=== PATIENT | female | born 1945 | race Caucasian/White ===

== ENCOUNTER 2018-12-31 19:26 | Emergency (ER) | payer OTHER, MEDICARE ==
--- NOTE | 2018-12-31 20:12 | ER ---
Nurse's Notes [facility] Name: Daya Nelson Age: 73 yrs Sex: Female : 1945 Arrival Date: 12/31/2018 Time: 19:32 Bed 18 Private MD: Sarbjit Juan Diagnosis: Cutaneous abscess of right lower limb Presentation: 12/31 19:33 Presenting complaint: Patient states: Something bit my on my right leg. I think it may ed1 have been a spider but I didn't see it. Transition of care: patient was not received from another setting of care. Onset of symptoms was December 28, 2018. Risk Assessment: Do you want to hurt yourself or someone else? Patient reports no desire to harm self or others. Initial Sepsis Screen: Does the patient meet any 2 criteria? No. Patient's initial sepsis screen is negative. Does the patient have a suspected source of infection? No. Patient's initial sepsis screen is negative. Care prior to arrival: None. 19:33 Method Of Arrival: Ambulatory ed1 19:33 Acuity: FORTINO 3 ed1 Triage Assessment: 19:36 Bite description: bite sustained to right leg by an unknown animal, animal information: ed1 vaccination(s) is not applicable. General: Appears in no apparent distress. Behavior is calm, cooperative. Pain: Complains of pain in right leg Pain currently is 3 out of 10 on a pain scale. at worst was 5 out of 10 on a pain scale. Historical: - Allergies: 19:36 No Known Allergies; ed1 - Home Meds: 19:36 losartan 100 mg oral tab 1 tab once daily [Active]; aspirin 81 mg Oral chew 1 tab once ed1 daily [Active]; - PMHx: 19:36 Hypertension; Chronic Bronchitis; Irregular heart rate; ed1 - PSHx: 19:36 Hysterectomy; Appendectomy; ed1 - Immunization history:: Last tetanus immunization: > 10 years ago Flu vaccine is up to date. - Social history:: Smoking status: Patient/guardian denies using tobacco. - Ebola Screening: : Patient negative for fever greater than or equal to 101.5 degrees Fahrenheit, and additional compatible Ebola Virus Disease symptoms Patient denies exposure to infectious person Patient denies travel to an Ebola-affected area in the 21 days before illness onset No symptoms or risks identified at this time. Screenin:59 Abuse screen: Denies threats or abuse. Nutritional screening: No deficits noted. ea Tuberculosis screening: No symptoms or risk factors identified. Fall Risk None identified. Assessment: 19:55 General: Appears uncomfortable, Behavior is calm, cooperative, appropriate for age. ea Pain: Complains of pain in lateral aspect of right calf. Neuro: Level of Consciousness is awake, alert, obeys commands, Oriented to person, place, time. Cardiovascular: Patient's skin is warm and dry. Respiratory: Airway is patent Respiratory effort is even, unlabored, Respiratory pattern is regular, symmetrical. Derm: Skin red raised area to right lower extremity, purulent drainage noted Skin is pink, warm \T\ dry. 20:29 Reassessment: Patient and/or family updated on plan of care and expected duration. Pain ea level reassessed. Patient is alert, oriented x 3, equal unlabored respirations, skin warm/dry/pink. Discharge instruction given to patient, verbalized the understanding of instruction. Pt left ED ambulatory with family, pt tolerating well. Vital Signs: 19:36 BP 148 / 69; Pulse 98; Resp 16; Temp 97.7; Pulse Ox 96% on R/A; Weight 89.81 kg; Height ed1 5 ft. 7 in. (170.18 cm); Pain 3/10; 20:00 BP 136 / 70; Pulse 80; Resp 18; Pulse Ox 99% ; ea 19:36 Body Mass Index 31.01 (89.81 kg, 170.18 cm) ed1 ED Course: 19:32 Patient arrived in ED. es 19:32 Sarbjit Juan MD is Private Physician. es 19:34 Triage completed. ed1 19:36 Arm band placed on right wrist. ed1 19:46 Genie Santos [facility]-C [facility]. kb 19:46 Slade Schmitt MD is Attending Physician. kb 19:49 Марина Mcdaniels RN is Primary Nurse. ea 19:59 Patient has correct armband on for positive identification. Bed in low position. Call ea light in reach. Side rails up X2. 20:12 Sarbjit Juan MD is Referral Physician. kb 20:29 No provider procedures requiring assistance completed. Patient did not have IV access ea during this emergency room visit. Administered Medications: 20:13 Drug: Bactrim (160 mg-800 mg (DS) 1 tablet Route: PO; ea 20:31 Follow up: Response: No adverse reaction ea Outcome: 20:12 Discharge ordered by . paula 20:30 Discharged to home ambulatory, with family. ea 20:30 Condition: good 20:30 Discharge instructions given to patient, Instructed on discharge instructions, follow up and referral plans. medication usage, Demonstrated understanding of instructions, follow-up care, medications, Prescriptions given X 1. 20:30 Patient left the ED. ea Addendum: 01/04/2019 10:16 Addendum: Culture Results: Positive wound culture. No further action required. Bacteria s s sensitive to prescribed antibiotic. Signatures: Genie Santos, DIRECTOR DENTAL SERVICES-C DIRECTOR DENTAL SERVICES-Ckb Judit Cheek [place], AIDEN WOLFE Cesilia Levin RN RN ed1 Марина Mcdaniels RN RN ea
--- NOTE | 2018-12-31 20:13 | EDPHYS ---
Physician Documentation [facility] Name: Daya Nelson Age: 73 yrs Sex: Female : 1945 Arrival Date: 12/31/2018 Time: 19:32 Bed 18 Private MD: Sarbjit Juan ED Physician Slade Schmitt HPI: 12/31 20:09 This 73 yrs old Female presents to ER via Ambulatory with complaints of kb Insect Bite. 20:09 The patient presents with an abscess of the lateral aspect of right calf. Description: kb draining, erythematous, swollen, warm. Onset: The symptoms/episode began/occurred 3 day(s) ago. Possible cause(s): bit/stung by something. Associated signs and symptoms: Pertinent positives: drainage, erythema, swelling, Pertinent negatives: foreign body sensation, fever, headache, nausea, shortness of breath, vomiting. Modifying factors: the symptoms are alleviated by nothing, the symptoms are aggravated by pressure, squeezing the lesion and expressing the contents. Severity of symptoms: At their worst the symptoms were mild, moderate, in the emergency department the symptoms are unchanged. The patient has not experienced similar symptoms in the past. The patient has not recently seen a physician. Pt reports she felt something sting/bite her 3 days ago and scratched the area afterwards. Started getting red and swollen. Opened it with a needle at home and has been putting antibiotic cream on it, but family told her she had to come get it looked at because it could be a brown recluse bite. Abscess open and draining. Was able to express a moderate amount of purulent fluid from abscess. Pt does not want it cut at this time. Educated to take antibiotics and apply warm compressed . Historical: - Allergies: 19:36 No Known Allergies; ed1 - Home Meds: 19:36 losartan 100 mg oral tab 1 tab once daily [Active]; aspirin 81 mg Oral chew 1 tab once ed1 daily [Active]; - PMHx: 19:36 Hypertension; Chronic Bronchitis; Irregular heart rate; ed1 - PSHx: 19:36 Hysterectomy; Appendectomy; ed1 - Immunization history:: Last tetanus immunization: > 10 years ago Flu vaccine is up to date. - Social history:: Smoking status: Patient/guardian denies using tobacco. - Ebola Screening: : Patient negative for fever greater than or equal to 101.5 degrees Fahrenheit, and additional compatible Ebola Virus Disease symptoms Patient denies exposure to infectious person Patient denies travel to an Ebola-affected area in the 21 days before illness onset No symptoms or risks identified at this time. ROS: 20:08 Constitutional: Negative for fever, chills, and weight loss, Cardiovascular: Negative kb for chest pain, palpitations, and edema, Respiratory: Negative for shortness of breath, cough, wheezing, and pleuritic chest pain, Abdomen/GI: Negative for abdominal pain, nausea, vomiting, diarrhea, and constipation, MS/Extremity: Negative for injury and deformity, Neuro: Negative for headache, weakness, numbness, tingling, and seizure. 20:08 Skin: Positive for abscess, of the lateral aspect of right calf. Exam: 20:08 Constitutional: This is a well developed, well nourished patient who is awake, alert, kb and in no acute distress. Head/Face: Normocephalic, atraumatic. Chest/axilla: Normal chest wall appearance and motion. Nontender with no deformity. No lesions are appreciated. Cardiovascular: Regular rate and rhythm with a normal S1 and S2. No gallops, murmurs, or rubs. Normal PMI, no JVD. No pulse deficits. Respiratory: Lungs have equal breath sounds bilaterally, clear to auscultation and percussion. No rales, rhonchi or wheezes noted. No increased work of breathing, no retractions or nasal flaring. Abdomen/GI: Soft, non-tender, with normal bowel sounds. No distension or tympany. No guarding or rebound. No evidence of tenderness throughout. MS/ Extremity: Pulses equal, no cyanosis. Neurovascular intact. Full, normal range of motion. Neuro: Awake and alert, GCS 15, oriented to person, place, time, and situation. Cranial nerves II-XII grossly intact. Motor strength 5/5 in all extremities. Sensory grossly intact. Cerebellar exam normal. Normal gait. 20:08 Skin: abscess, that is moderate sized, of the lateral aspect of right calf, with drainage, that is purulent, with induration, with surrounding cellulitis, that is mild. Vital Signs: 19:36 BP 148 / 69; Pulse 98; Resp 16; Temp 97.7; Pulse Ox 96% on R/A; Weight 89.81 kg; Height ed1 5 ft. 7 in. (170.18 cm); Pain 3/10; 20:00 BP 136 / 70; Pulse 80; Resp 18; Pulse Ox 99% ; ea 19:36 Body Mass Index 31.01 (89.81 kg, 170.18 cm) ed1 MDM: 19:46 Patient medically screened. kb 20:07 Data reviewed: vital signs, nurses notes. Data interpreted: Pulse oximetry: on room air kb is 96 %. Interpretation: normal. Counseling: I had a detailed discussion with the patient and/or guardian regarding: the historical points, exam findings, and any diagnostic results supporting the discharge/admit diagnosis, the need for outpatient follow up, a family practitioner, to return to the emergency department if symptoms worsen or persist or if there are any questions or concerns that arise at home. 12/31 20:05 Order name: Wound Culture kb 12/31 20:05 Order name: Wound Culture EDMS Administered Medications: 20:13 Drug: Bactrim (160 mg-800 mg (DS) 1 tablet Route: PO; ea 20:31 Follow up: Response: No adverse reaction ángel Disposition: 01/01 00:00 Co-signature as Attending Physician, Slade Schmitt MD. dalia Disposition: 12/31/18 20:12 Discharged to Home. Impression: Cutaneous abscess of right lower limb. - Condition is Stable. - Discharge Instructions: Skin Abscess, [id number]. - Prescriptions for Bactrim DS 800- 160 mg Oral Tablet - take 1 tablet by ORAL route every 12 hours for 7 days; 14 tablet. - Medication Reconciliation Form, Thank You Letter, Antibiotic Education, Prescription Opioid Use form. - Follow up: Emergency Department; When: As needed; Reason: Worsening of condition. Follow up: Sarbjit Juan MD; When: 2 - 3 days; Reason: Recheck today's complaints, Continuance of care, Re-evaluation by your physician. Signatures: Dispatcher [employer] EDMS Genie Santos FNP-C FNP-Ckb Riggs, Erika RN RN ed1 Марина Mcdaniels RN RN ea Starr, Gregory, MD MD gs Corrections: (The following items were deleted from the chart) 12/31 20:30 20:12 12/31/2018 20:12 Discharged to Home. Impression: Cutaneous abscess of right lower ea limb. Condition is Stable. Forms are Medication Reconciliation Form, Thank You Letter, Antibiotic Education, Prescription Opioid Use. Follow up: Emergency Department; When: As needed; Reason: Worsening of condition. Follow up: Sarbjit Juan; When: 2 - 3 days; Reason: Recheck today's complaints, Continuance of care, Re-evaluation by your physician. kb
[2018-12-31] MEDS ORDERED: SMZ./TMP. 800/160 MG TABLET ONE (20:26)
== END 2018-12-31 20:30 | disposition home or self-care (01) ==
LOC: ER 19:26
DX: L02.415 Cutaneous abscess of right lower limb (principal); Z79.82 Long term (current) use of aspirin; I10 Essential (primary) hypertension
CPT/HCPCS: 87070; 87077; 87186; 87205; 99283

== ENCOUNTER 2019-09-04 16:32 | Emergency (ER) | payer OTHER, MEDICARE ==
--- NOTE | 2019-09-04 18:06 | RAD REPORT ---
EXAM DESCRIPTION: RAD - Chest Pa And Lat (2 Views) - 09/04/2019 5:46 pm CLINICAL HISTORY: Cough;Congestion COMPARISON: No comparisons TECHNIQUE: Frontal and lateral views of the chest were obtained. FINDINGS: The lungs are clear peripheral mass or consolidation. No failure or volume overload. Inter stitial markings are prominent in each lung base. As a baseline study, fibrosis, edema and infiltrate can all have a similar pattern. Heart size is normal and central vasculature is within normal limi ts. No pleural effusion or pneumothorax seen. No acute bony finding noted. No aortic abnormality. IMPRESSION: No focal mass or consolidation. Baseline study showing increased interstitial opacification in each base. As a baseline study, inters titial pneumonia, fibrosis and interstitial edema can all have this appearance.
[2019-09-04 18:12] LABS: Basophils % 0.6 % (0-1.3); Hematocrit 44.3 % (36.0-45.0); Lymphocytes % 17.3 % (15.3-44.8); MPV 8.5 fL (7.6-11.3); RBC Red Blood Cell Count 4.78 M/uL (3.86-4.86)
[2019-09-04] MEDS ORDERED: IPRATROPIUM BROM 0.5MG/2.5ML ONE (18:14)
[2019-09-04] MEDS ORDERED: LEVALBUTEROL 1.25 MG/3 ML NEB ONE (18:14)
[2019-09-04 20:07] LABS: Potassium 3.7 mmol/L (3.5-5.1)
--- NOTE | 2019-09-04 20:21 | EDPHYS ---
Physician Documentation [facility] Name: Daya Nelson Age: 74 yrs Sex: Female : 1945 Arrival Date: 09/04/2019 Time: 16:36 Bed 17 Private MD: ED Physician Shay Perry HPI: 09/04 17:42 This 74 yrs old Female presents to ER via Ambulatory with complaints of kb Pneumonia- getting worse. 17:43 The patient or guardian reports cough, that is intermittent, described as moderate, kb with no sputum, difficulty breathing. Onset: The symptoms/episode began/occurred 2 week(s) ago. Severity of symptoms: At their worst the symptoms were moderate, in the emergency department the symptoms are unchanged. Modifying factors: The symptoms are alleviated by nothing, the symptoms are aggravated by nothing. Associated signs and symptoms: The patient has no apparent associated signs or symptoms. The patient has not experienced similar symptoms in the past. The patient has been recently seen at an urgent care. Pt reports cough, congestion, wheezing and shortness of breath that started 2 weeks ago. Went to and was diagnosed with bronchitis, given a z-pack. States she wasn't feeling better so she went back and was diagnosed with pneumonia, put on steroids. States she is still having the symptoms . Historical: - Allergies: 16:50 No Known Allergies; ca1 - PMHx: 16:50 chronic bronchitis; Hypertension; Irregular heart rate; ca1 - PSHx: 16:50 Hysterectomy; Appendectomy; ca1 - Immunization history:: Adult Immunizations up to date, Pneumococcal vaccine is not up to date, Flu vaccine is not up to date. - Coronavirus screen:: The patient has NOT traveled to [place], [place], or [place] in the past 14 days. The patient has NOT had contact with known/suspected case of Coronavirus?. - Social history:: Smoking status: Patient denies any tobacco usage or history of. - Ebola Screening: : Patient negative for fever greater than or equal to 101.5 degrees Fahrenheit, and additional compatible Ebola Virus Disease symptoms Patient denies exposure to infectious person Patient denies travel to an Ebola-affected area in the 21 days before illness onset No symptoms or risks identified at this time. ROS: 17:42 Constitutional: Negative for fever, chills, and weight loss, ENT: Negative for injury, kb pain, and discharge, Neck: Negative for injury, pain, and swelling, Cardiovascular: Negative for chest pain, palpitations, and edema, Abdomen/GI: Negative for abdominal pain, nausea, vomiting, diarrhea, and constipation, Back: Negative for injury and pain, MS/Extremity: Negative for injury and deformity, Skin: Negative for injury, rash, and discoloration, Neuro: Negative for headache, weakness, numbness, tingling, and seizure. 17:42 Respiratory: Positive for cough, shortness of breath, wheezing. Exam: 17:42 Constitutional: This is a well developed, well nourished patient who is awake, alert, kb and in no acute distress. Head/Face: Normocephalic, atraumatic. ENT: Nares patent. No nasal discharge, no septal abnormalities noted. Tympanic membranes are normal and external auditory canals are clear. Oropharynx with no redness, swelling, or masses, exudates, or evidence of obstruction, uvula midline. Mucous membranes moist. Neck: Trachea midline, no thyromegaly or masses palpated, and no cervical lymphadenopathy. Supple, full range of motion without nuchal rigidity, or vertebral point tenderness. No Meningismus. Chest/axilla: Normal chest wall appearance and motion. Nontender with no deformity. No lesions are appreciated. Cardiovascular: Regular rate and rhythm with a normal S1 and S2. No gallops, murmurs, or rubs. Normal PMI, no JVD. No pulse deficits. Abdomen/GI: Soft, non-tender, with normal bowel sounds. No distension or tympany. No guarding or rebound. No evidence of tenderness throughout. Back: No spinal tenderness. No costovertebral tenderness. Full range of motion. Skin: Warm, dry with normal turgor. Normal color with no rashes, no lesions, and no evidence of cellulitis. MS/ Extremity: Pulses equal, no cyanosis. Neurovascular intact. Full, normal range of motion. Neuro: Awake and alert, GCS 15, oriented to person, place, time, and situation. Cranial nerves II-XII grossly intact. Motor strength 5/5 in all extremities. Sensory grossly intact. Cerebellar exam normal. Normal gait. 17:42 Respiratory: the patient does not display signs of respiratory distress, Respirations: normal, Breath sounds: wheezing: expiratory that is moderate, is heard diffusely. Vital Signs: 16:50 BP 151 / 63; Pulse 81; Resp 23 S; Temp 97.4(O); Pulse Ox 96% on R/A; Weight 88.45 kg ca1 (R); Height 5 ft. 7 in. (170.18 cm) (R); 17:50 BP 161 / 69; Pulse 74; Resp 21; Pulse Ox 94% on R/A; rb1 19:15 BP 142 / 66; Pulse 78; Resp 18; Pulse Ox 95% on R/A; wh 20:00 BP 144 / 65; Pulse 76; Resp 18; Temp 97.2; Pulse Ox 95% ; wh 16:50 Body Mass Index 30.54 (88.45 kg, 170.18 cm) ca1 MDM: 16:52 Patient medically screened. kb 17:42 Data reviewed: vital signs, nurses notes. Data interpreted: Pulse oximetry: on room air kb is 96 %. Interpretation: normal. 20:19 Counseling: I had a detailed discussion with the patient and/or guardian regarding: the kb historical points, exam findings, and any diagnostic results supporting the discharge/admit diagnosis, lab results, radiology results, the need for outpatient follow up, a family practitioner, to return to the emergency department if symptoms worsen or persist or if there are any questions or concerns that arise at home. 20:20 ED course: Pt educated to follow up with watermaster seen previously in [place] for kb COPD management. 09/04 17:08 Order name: CBC with Diff; Complete Time: 18:27 kb 09/04 17:08 Order name: Basic Metabolic Panel; Complete Time: 20:04 kb 09/04 17:08 Order name: Blood Culture Adult (2) kb 09/04 17:08 Order name: Lactate; Complete Time: 20:17 kb 09/04 17:08 Order name: Procalcitonin; Complete Time: 19:26 kb 09/04 17:08 Order name: Chest Pa And Lat (2 Views) XRAY; Complete Time: 18:19 kb 09/04 17:08 Order name: IV Start; Complete Time: 18:02 kb Administered Medications: 18:15 Drug: Xopenex (3) 1.25 mg Route: Inhalation; rb1 18:15 Drug: AtroVENT Aerosol 0.5 mg Route: Inhalation; rb1 Disposition: 09/05 07:02 Co-signature as Attending Physician, Shay Perry MD. rn Disposition: 09/04/19 20:20 Discharged to Home. Impression: Chronic obstructive pulmonary disease with (acute) exacerbation. - Condition is Stable. - Discharge Instructions: Chronic Obstructive Pulmonary Disease Exacerbation. - Medication Reconciliation Form, Thank You Letter, Antibiotic Education, Prescription Opioid Use form. - Follow up: Emergency Department; When: As needed; Reason: Worsening of condition. Follow up: Private Physician; When: 2 - 3 days; Reason: Recheck today's complaints, Continuance of care, Re-evaluation by your physician. Signatures: Dispatcher [employer] EDMS Genie Santos, TUBE COREMAKER-C TUBE COREMAKER-Ckb Shay Perry MD MD rn Juanita Rudd, RN RN [facility] Ora Brady Cheryl, RN RN ca1 Corrections: (The following items were deleted from the chart) 09/04 20:38 20:20 09/04/2019 20:20 Discharged to Home. Impression: Chronic obstructive pulmonary wh disease with (acute) exacerbation. Condition is Stable. Forms are Medication Reconciliation Form, Thank You Letter, Antibiotic Education, Prescription Opioid Use. Follow up: Emergency Department; When: As needed; Reason: Worsening of condition. Follow up: Private Physician; When: 2 - 3 days; Reason: Recheck today's complaints, Continuance of care, Re-evaluation by your physician. kb
--- NOTE | 2019-09-04 20:21 | ER ---
Nurse's Notes [facility] Name: Daya Nelson Age: 74 yrs Sex: Female : 1945 Arrival Date: 09/04/2019 Time: 16:36 Bed 17 Private MD: Diagnosis: Chronic obstructive pulmonary disease with (acute) exacerbation Presentation: 09/04 16:43 Presenting complaint: Patient states: On the , I was diagnosed with Bronchitis ca1 Prescribed Z-pack, inhaler, and Perles. ON the , I was diagnosed with Pneumonia and was prescribed breathing treatments and steroids. But I feel like I am getting worse. I have to catch my breath now. Denies fever. Transition of care: patient was not received from another setting of care. Onset of symptoms was September 04, 2019. Risk Assessment: Do you want to hurt yourself or someone else? Patient reports no desire to harm self or others. Initial Sepsis Screen: Does the patient meet any 2 criteria? No. Patient's initial sepsis screen is negative. Does the patient have a suspected source of infection? No. Patient's initial sepsis screen is negative. 16:43 Method Of Arrival: Ambulatory ca1 16:43 Acuity: FORTINO 3 ca1 19:15 Care prior to arrival: None. Triage Assessment: 19:15 Pain: Denies pain. Historical: - Allergies: 16:50 No Known Allergies; ca1 - PMHx: 16:50 chronic bronchitis; Hypertension; Irregular heart rate; ca1 - PSHx: 16:50 Hysterectomy; Appendectomy; ca1 - Immunization history:: Adult Immunizations up to date, Pneumococcal vaccine is not up to date, Flu vaccine is not up to date. - Coronavirus screen:: The patient has NOT traveled to [place], [place], or [place] in the past 14 days. The patient has NOT had contact with known/suspected case of Coronavirus?. - Social history:: Smoking status: Patient denies any tobacco usage or history of. - Ebola Screening: : Patient negative for fever greater than or equal to 101.5 degrees Fahrenheit, and additional compatible Ebola Virus Disease symptoms Patient denies exposure to infectious person Patient denies travel to an Ebola-affected area in the 21 days before illness onset No symptoms or risks identified at this time. Screenin:52 Abuse screen: Denies threats or abuse. Nutritional screening: No deficits noted. rb1 Tuberculosis screening: No symptoms or risk factors identified. Fall Risk None identified. Assessment: 16:52 General: Appears in no apparent distress. comfortable, Behavior is calm, cooperative, rb1 Denies fever. Neuro: Level of Consciousness is awake, alert, obeys commands, Oriented to person, place, time, situation. Cardiovascular: Patient's skin is warm and dry. Respiratory: Reports shortness of breath cough that is productive, since x a couple weeks Airway is patent Respiratory effort is even, unlabored, Respiratory pattern is regular, symmetrical. GI: No signs and/or symptoms were reported involving the gastrointestinal system. : No signs and/or symptoms were reported regarding the genitourinary system. 17:50 Reassessment: Patient appears in no apparent distress at this time. No changes from [facility] previously documented assessment. Family is at the bedside. 19:15 Reassessment: Patient appears in no apparent distress at this time. Patient and/or family updated on plan of care and expected duration. Pain level reassessed. Patient is alert, oriented x 3, equal unlabored respirations, skin warm/dry/pink. 20:30 Reassessment: Patient appears in no apparent distress at this time. No changes from previously documented assessment. Patient and/or family updated on plan of care and expected duration. Pain level reassessed. Patient is alert, oriented x 3, equal unlabored respirations, skin warm/dry/pink. Vital Signs: 16:50 BP 151 / 63; Pulse 81; Resp 23 S; Temp 97.4(O); Pulse Ox 96% on R/A; Weight 88.45 kg ca1 (R); Height 5 ft. 7 in. (170.18 cm) (R); 17:50 BP 161 / 69; Pulse 74; Resp 21; Pulse Ox 94% on R/A; rb1 19:15 BP 142 / 66; Pulse 78; Resp 18; Pulse Ox 95% on R/A; wh 20:00 BP 144 / 65; Pulse 76; Resp 18; Temp 97.2; Pulse Ox 95% ; wh 16:50 Body Mass Index 30.54 (88.45 kg, 170.18 cm) ca1 ED Course: 16:36 Patient arrived in ED. as 16:49 Triage completed. ca1 16:50 [facility]C [facility] kb 16:50 Shay Perry MD is Attending Physician. kb 16:50 Arm band placed on right wrist. ca1 16:52 Patient has correct armband on for positive identification. Placed in gown. Bed in low rb1 position. Call light in reach. Side rails up X 1. Pulse ox on. NIBP on. 16:57 Juanita Rudd, RN is Primary Nurse. rb1 17:44 Chest Pa And Lat (2 Views) XRAY In Process Unspecified. EDMS 17:58 Initial lab(s) drawn, by me, sent to lab. First set of blood cultures drawn. Inserted em1 saline lock: 20 gauge in right wrist, using aseptic technique. Blood collected. 20:37 No provider procedures requiring assistance completed. IV discontinued, intact, bleeding controlled, No redness/swelling at site. Administered Medications: 18:15 Drug: Xopenex (3) 1.25 mg Route: Inhalation; rb1 18:15 Drug: AtroVENT Aerosol 0.5 mg Route: Inhalation; rb1 Outcome: 20:20 Discharge ordered by . kb 20:37 Discharged to home ambulatory, with family. wh 20:37 Condition: stable 20:37 Discharge instructions given to patient, family, Instructed on discharge instructions, follow up and referral plans. POC Demonstrated understanding of instructions, follow-up care, POC 20:38 Patient left the ED. Signatures: Dispatcher [employer] EDMS Genie Santos, TELESALES AGENT-C TELESALES AGENT-Eleanor Daniels Eric em1 Juanita Rudd, RN RN rb1 Ora Brady Nuria Oconnell RN RN ca1
[2019-09-04 22:17] VITALS: O2SAT 95
[2019-09-04 22:18] VITALS: BP 144/65; TEMP 97.2
== END 2019-09-04 20:38 | disposition home or self-care (01) ==
LOC: ER 16:32
DX: J44.1 Chronic obstructive pulmonary disease with (acute) exacerbation (principal)
CPT/HCPCS: 36415; 71046; 80048; 83605; 84145; 85025; 87040; 99284

== ENCOUNTER 2019-09-06 18:26 | Inpatient (IN) | payer OTHER, MEDICARE ==
[2019-09-06] MEDS: ENOXAPARIN 100 MG/ML SYR SQ SCH (00:28)
[2019-09-06] MEDS ORDERED: RSI MEDICATION KIT IV ONE (18:35)
[2019-09-06] MEDS ORDERED: IPRATROPIUM BROM 0.5MG/2.5ML ONE ×2 (18:37→20:27)
[2019-09-06] MEDS ORDERED: METHYLPREDNISOLONE 125 MG INJ ONE (18:37)
[2019-09-06] MEDS ORDERED: MAGNESIUM SULFATE 1 gm IVPB 1 GM/100 ML BAG IV ONE (18:37)
[2019-09-06] MEDS ORDERED: ALBUTEROL 2.5 MG/3 ML NEB SOL ONE ×2 (18:37→20:27)
[2019-09-06 18:52] LABS: Basophils % 0.6 % (0-1.3); Lymphocytes % 17.6 % (15.3-44.8); RBC Red Blood Cell Count 5.09 M/uL (3.86-4.86)
--- NOTE | 2019-09-06 18:55 | RAD REPORT ---
EXAM DESCRIPTION: RAD - Chest Single View - 09/06/2019 6:50 pm CLINICAL HISTORY: SOB Chest pain. COMPARISON: <Comparisons> FINDINGS: Portable technique limits examination quality. The lungs are mildly emphysematous clear. The heart is normal in size. No displaced fractures. IMPRESSION: Mild COPD.
--- NOTE | 2019-09-06 19:05 | EDPHYS ---
Physician Documentation [facility] Name: Daya Nelson Age: 74 yrs Sex: Female : 1945 Arrival Date: 09/06/2019 Time: 18:27 Bed 4 Private MD: Sarbjit Juan ED Physician Adrian oDnald HPI: 09/06 18:58 This 74 yrs old Female presents to ER via Wheelchair with complaints of tw4 Breathing Difficulty. 18:58 The patient has shortness of breath at rest. Onset: The symptoms/episode began/occurred tw4 today. Duration: The symptoms are continuous, and are steadily getting worse. The patient's shortness of breath has no apparent modifying factors. Associated signs and symptoms: The patient has no apparent associated signs or symptoms. Severity of symptoms: At their worst the symptoms were moderate in the emergency department the symptoms. The patient has not experienced similar symptoms in the past. 18:58 Unable to obtain HPI due to patient distress. tw4 Historical: - Allergies: 18:39 No Known Allergies; hb - Home Meds: 18:39 losartan 100 mg Oral tab 1 tab once daily [Active]; aspirin 81 mg Oral chew 1 tab once hb daily [Active]; - PMHx: 18:39 chronic bronchitis; Hypertension; Irregular heart rate; hb - PSHx: 18:39 Hysterectomy; Appendectomy; hb - Immunization history:: Adult Immunizations. - Coronavirus screen:: The patient has NOT traveled to [place], [place], or [place] in the past 14 days. - Social history:: Smoking status: . - Ebola Screening: : Patient denies travel to an Ebola-affected area in the 21 days before illness onset. ROS: 18:58 Constitutional: Negative for fever, chills, and weight loss, Eyes: Negative for injury, tw4 pain, redness, and discharge, Cardiovascular: Negative for chest pain, palpitations, and edema, Abdomen/GI: Negative for abdominal pain, nausea, vomiting, diarrhea, and constipation, Back: Negative for injury and pain, MS/Extremity: Negative for injury and deformity, Skin: Negative for injury, rash, and discoloration, Neuro: Negative for headache, weakness, numbness, tingling, and seizure. 18:58 Respiratory: Positive for shortness of breath, wheezing, expiratory, Negative for cough, dyspnea on exertion, hemoptysis, orthopnea, pleurisy. Exam: 18:58 Head/Face: Normocephalic, atraumatic. Eyes: Pupils equal round and reactive to light, tw4 extra-ocular motions intact. Lids and lashes normal. Conjunctiva and sclera are non-icteric and not injected. Cornea within normal limits. Periorbital areas with no swelling, redness, or edema. Chest/axilla: Normal chest wall appearance and motion. Nontender with no deformity. No lesions are appreciated. Cardiovascular: Regular rate and rhythm with a normal S1 and S2. No gallops, murmurs, or rubs. Normal PMI, no JVD. No pulse deficits. Abdomen/GI: Soft, non-tender, with normal bowel sounds. No distension or tympany. No guarding or rebound. No evidence of tenderness throughout. Back: No spinal tenderness. No costovertebral tenderness. Full range of motion. MS/ Extremity: Pulses equal, no cyanosis. Neurovascular intact. Full, normal range of motion. Neuro: Awake and alert, GCS 15, oriented to person, place, time, and situation. Cranial nerves II-XII grossly intact. Motor strength 5/5 in all extremities. Sensory grossly intact. Cerebellar exam normal. Normal gait. 18:58 Constitutional: The patient appears anxious, in obvious distress, moderately distressed. 18:58 Respiratory: moderate respiratory distress is noted, Respirations: labored breathing, that is moderate, accessory muscle usage, that is moderate, Breath sounds: wheezing: that is moderate, is heard diffusely. Vital Signs: 18:30 BP 154 / 124; Pulse 101; Resp 33; Temp 98.3; Pulse Ox 78% on R/A; hb 18:47 BP 155 / 106; Pulse 97; Resp 28; Pulse Ox 99% on 30% BiPAP; Pain 0/10; tw2 19:10 BP 106 / 88; Pulse 97; Resp 22; Pulse Ox 99% on 100% BiPAP; jb4 20:45 BP 134 / 79; Pulse 100; Resp 24; Pulse Ox 96% on 3 lpm NC; jb4 21:17 BP 132 / 86; Pulse 93; Resp 20; Temp 97.8(TE); Pulse Ox 97% on 3 lpm NC; jb4 18:47 15/7 rate 16 tw2 MDM: 18:28 Patient medically screened. tw4 09/07 00:29 Differential diagnosis: Anemia asthma, Bronchitis CHF exacerbation, pneumonia, tw4 Pneumothorax pulmonary edema, reactive airway disease. Antibiotic administration: Not indicated. Data reviewed: vital signs, EMS record. Data interpreted: Pulse oximetry: Interpretation: normal. Counseling: I had a detailed discussion with the patient and/or guardian regarding: the historical points, exam findings, and any diagnostic results supporting the discharge/admit diagnosis, lab results, radiology results. Physician consultation: Margie Dixon MD was contacted at 19:44, regarding admission, to the telemetry unit. patient's condition, and will see patient in inpatient room. ED course: Pt presented with impending respiratory failurre related to COPD. Pt placed on bipap and stated that she felt better. . 00:33 ED course: Pt ABG after 1 hour BiPAP and neb treatments. Will admit the patient to the tw4 floor and downgrade from the ICU. 09/06 18:36 Order name: Basic Metabolic Panel; Complete Time: 00:32 09/06 18:36 Order name: CBC with Diff; Complete Time: 00:32 09/06 18:36 Order name: LFT's; Complete Time: 00:32 09/06 18:36 Order name: Magnesium; Complete Time: 00:32 09/06 18:36 Order name: NT PRO-BNP; Complete Time: 00:32 09/06 18:36 Order name: Troponin (emerg Dept Use Only); Complete Time: 00:32 09/06 18:36 Order name: Blood Culture Adult (2) 09/06 18:37 Order name: Ckmb; Complete Time: 00:32 09/06 18:37 Order name: CPK; Complete Time: 00:32 09/06 18:37 Order name: Lipase; Complete Time: 00:32 09/06 18:37 Order name: Ptt, Activated; Complete Time: 00:32 09/06 18:45 Order name: Protime (+INR); Complete Time: 00:32 ED09/06 21:25 Order name: ABG Arterial Blood Gas; Complete Time: 00:32 EDMS 09/06 21:25 Order name: Troponin I; Complete Time: 00:32 EDMS 09/06 21:30 Order name: CBC with Automated Diff EDMS 09/06 21:30 Order name: CBC with Automated Diff EDMS 09/06 21:30 Order name: Comprehensive Metabolic Panel EDMS 09/06 21:30 Order name: Comprehensive Metabolic Panel EDMS 09/06 21:30 Order name: Lactate EDMS 09/06 21:30 Order name: Lactate EDMS 09/06 21:30 Order name: Magnesium EDMS 09/06 21:30 Order name: Magnesium EDMS 09/06 21:30 Order name: Phosphorus EDMS 09/06 21:30 Order name: Phosphorus EDMS 09/06 21:30 Order name: NT PRO-BNP EDMS 09/06 21:30 Order name: NT PRO-BNP EDWV 09/06 21:31 Order name: Troponin I EDWV 09/06 21:31 Order name: Troponin I EDWV 09/06 21:31 Order name: Troponin I EDWV 09/06 18:36 Order name: XRAY Chest (1 view); Complete Time: 00:32 09/06 18:36 Order name: EKG; Complete Time: 18:37 09/06 18:36 Order name: Cardiac monitoring; Complete Time: 18:47 09/06 18:36 Order name: EKG - Nurse/Tech; Complete Time: 19:10 09/06 18:36 Order name: IV Saline Lock; Complete Time: 19:10 09/06 18:36 Order name: Labs collected and sent; Complete Time: 18:47 09/06 18:36 Order name: O2 Per Protocol; Complete Time: 18:47 09/06 18:36 Order name: O2 Sat Monitoring; Complete Time: 18:46 09/06 18:36 Order name: BIPAP [facility] 09/06 21:30 Order name: CONS Physician Consult EDWV 09/06 21:30 Order name: Heart Healthy EDWV 09/06 21:31 Order name: Troponin I EDWV EC/01 18:58 Rate is 93 beats/min. Rhythm is regular, Normal Sinus Rhythm with Right bundle branch tw4 block. QRS [place] is Normal. [place] interval is normal. QRS interval is normal. QT interval is normal. No Q waves. T waves are Inverted in lead aVL. No ST changes noted. Clinical impression: NSR w/ Non-specific ST/T Changes. Interpreted by me. Reviewed by me. Administered Medications: 18:38 Drug: SOLU-Medrol 125 mg Route: IVP; Site: right forearm; em 19:00 Follow up: Response: No adverse reaction jb4 18:39 Drug: Magnesium Sulfate 1 grams Route: IVPB; Infused Over: 1 hrs; Site: right forearm; em 19:39 Follow up: Response: No adverse reaction; IV Status: Completed infusion jb4 18:40 Drug: Albuterol - atroVENT (3:1) (2.5 mg - 0.5 mg) 3 ml Route: Nebulizer; em 19:10 Follow up: Response: No adverse reaction jb4 19:54 Drug: Ativan 1 mg Route: PO; em 21:04 Follow up: Response: No adverse reaction; Anxiety decreased jb4 20:25 Drug: Albuterol 2.5 mg Route: Inhalation; jb4 21:00 Follow up: Response: No adverse reaction; Wheezing diminished jb4 20:25 Drug: AtroVENT Aerosol 0.5 mg Route: Inhalation; jb4 21:00 Follow up: Response: No adverse reaction; Wheezing diminished jb4 20:35 Drug: Zofran 4 mg Route: IVP; Site: left antecubital; jb4 21:19 Follow up: Response: No adverse reaction jb4 20:37 Drug: morphine 4 mg {Note: Rass score 1.} Route: IVP; Site: left antecubital; jb4 21:19 Follow up: Response: No adverse reaction; Pain is decreased; Anxiety decreased; RASS: jb4 Alert and Calm (0) Disposition: 09/07 00:27 Critical Care:. tw4 Disposition: 09/06/19 19:04 Hospitalization ordered by Margie Dixon for Inpatient Admission. Preliminary diagnosis are Chronic obstructive pulmonary disease with (acute) exacerbation, Hypoxemia. - Bed requested for Telemetry/MedSurg (Inpatient). - Status is Inpatient Admission. jb4 - Condition is Stable. - Problem is new. - Symptoms have improved. UTI on Admission? No Critical care time excluding procedures: 00:27 Critical care time: Bedside Care: 35 minutes, Consultation: 5 minutes, Family tw4 Intervention: 10 minutes. Total time: 50 minutes Signatures: Dispatcher [employer] Nathalie Main RN RN Yogesh Cross RN RN em Mariama Ashley RN AIDEN bb Wendi Tang, RN RN aa5 Fatuma Tan, RN AIDEN Alexia Min, AIDEN RN tw2 Michael Blanco, AIDEN WOLFE jb4 Adrian Donald MD MD tw4 January Frances ar5 Corrections: (The following items were deleted from the chart) 09/06 18:45 18:37 PROTIME (+INR)+COAG.LAB.BRZ ordered. EDMS EDMS 19:04 19:04 Hospitalization Ordered by Margie Dixon MD for Inpatient Admission. Preliminary tw4 diagnosis is Chronic obstructive pulmonary disease with (acute) exacerbation; Hypoxemia. Bed requested for Telemetry/MedSurg (Inpatient). Status is Inpatient Admission. Condition is Stable. Problem is new. Symptoms have improved. UTI on Admission? No. tw4 20:14 19:04 09/06/2019 19:04 Hospitalization Ordered by Margie Dixon MD for Inpatient mw Admission. Preliminary diagnosis is Chronic obstructive pulmonary disease with (acute) exacerbation; Hypoxemia. Bed requested for Intensive Care Unit. Status is Inpatient Admission. Condition is Stable. Problem is new. Symptoms have improved. UTI on Admission? No. tw4 20:24 20:14 09/06/2019 19:04 Hospitalization Ordered by Margie Dixon MD for Inpatient bb Admission. Preliminary diagnosis is Chronic obstructive pulmonary disease with (acute) exacerbation; Hypoxemia. Bed requested for Intensive Care Unit. Status is Inpatient Admission. Condition is Stable. Problem is new. Symptoms have improved. UTI on Admission? No. mw 20:29 20:24 09/06/2019 19:04 Hospitalization Ordered by Margie Dixon MD for Inpatient bb Admission. Preliminary diagnosis is Chronic obstructive pulmonary disease with (acute) exacerbation; Hypoxemia. Bed requested for Telemetry/MedSurg (Inpatient). Status is Inpatient Admission. Condition is Stable. Problem is new. Symptoms have improved. UTI on Admission? No. bb 20:47 20:29 09/06/2019 19:04 Hospitalization Ordered by Margie Dixon MD for Inpatient ar5 Admission. Preliminary diagnosis is Chronic obstructive pulmonary disease with (acute) exacerbation; Hypoxemia. Bed requested for Telemetry/MedSurg (Inpatient). Status is Inpatient Admission. Condition is Stable. Problem is new. Symptoms have improved. UTI on Admission? No. bb 21:52 20:47 09/06/2019 19:04 Hospitalization Ordered by Margie Dixon MD for Inpatient jb4 Admission. Preliminary diagnosis is Chronic obstructive pulmonary disease with (acute) exacerbation; Hypoxemia. Bed requested for Telemetry/MedSurg (Inpatient). Status is Inpatient Admission. Condition is Stable. Problem is new. Symptoms have improved. UTI on Admission? No. ar5
--- NOTE | 2019-09-06 19:05 | ER ---
Nurse's Notes [facility] Name: Daya Nelson Age: 74 yrs Sex: Female : 1945 Arrival Date: 09/06/2019 Time: 18:27 Bed 4 Private MD: Sarbjit Juan Diagnosis: Chronic obstructive pulmonary disease with (acute) exacerbation;Hypoxemia Presentation: 09/06 18:30 Acuity: FORTINO 1 hb 18:30 Presenting complaint: Arrived to ED by POV, in respiratory distress, unable to answer hb questions. Transition of care: patient was not received from another setting of care. Onset of symptoms was September 06, 2019. Risk Assessment: Do you want to hurt yourself or someone else? Unable to obtain. 18:53 Initial Sepsis Screen: Does the patient meet any 2 criteria? RR > 20 per min. HR > 90 tw2 bpm. Does the patient have a suspected source of infection? Yes: Productive cough/pneumonia. Note per Dr. Donald do not call code sepsis at this time. Care prior to arrival: None. 18:53 Method Of Arrival: Wheelchair tw2 18:54 Note pt friend at bedside at this time, she stated "i went over to visit her today, she tw2 just kept getting worse and worse and we went to [place] and they didn't have any beds so i drove her here, she lives home alone". Triage Assessment: 18:30 General: Appears distressed. General: Dr. Donald at bedside at this time.. Pain: Denies tw2 pain. Respiratory: Reports shortness of breath Onset: The symptoms/episode began/occurred today, the patient has severe shortness of breath. Historical: - Allergies: 18:39 No Known Allergies; hb - Home Meds: 18:39 losartan 100 mg Oral tab 1 tab once daily [Active]; aspirin 81 mg Oral chew 1 tab once hb daily [Active]; - PMHx: 18:39 chronic bronchitis; Hypertension; Irregular heart rate; hb - PSHx: 18:39 Hysterectomy; Appendectomy; hb - Immunization history:: Adult Immunizations. - Coronavirus screen:: The patient has NOT traveled to [place], [place], or [place] in the past 14 days. - Social history:: Smoking status: . - Ebola Screening: : Patient denies travel to an Ebola-affected area in the 21 days before illness onset. Screenin:40 Abuse screen: Denies threats or abuse. Nutritional screening: No deficits noted. em Tuberculosis screening: No symptoms or risk factors identified. Fall Risk None identified. Assessment: 18:38 Reassessment: provider at bedside. em 18:41 General: Appears distressed, uncomfortable, Behavior is cooperative, restless. Neuro: em Level of Consciousness is awake, alert, obeys commands. Cardiovascular: Rhythm is sinus tachycardia. Respiratory: Airway is patent Respiratory effort is labored, using tripod position, Respiratory pattern is tachypnea Breath sounds are diminished bilaterally. Derm: Skin is intact, is thin, Skin is dry, Skin is normal, Skin temperature is warm. Musculoskeletal: Capillary refill < 3 seconds, Range of motion: intact in all extremities. 19:10 Reassessment: Patient appears in no apparent distress at this time. Patient and/or jb4 family updated on plan of care and expected duration. Pain level reassessed. Respiratory: Airway is patent Respiratory effort is even, labored, Respiratory pattern is tachypnea Breath sounds are clear bilaterally. Breath sounds are diminished. 19:45 Reassessment: PT voices anxiety while wearing the Bipap, provider notified,see MAR for jb4 orders. 20:20 Reassessment: Patient and/or family updated on plan of care and expected duration. Pain jb4 level reassessed. Pt reports feeling more short of breath, wheezing is noted bilaterally, pt is more restless and reports lower back pain, ER provider notified, see MAR for orders. 21:10 Reassessment: Patient appears in no apparent distress at this time. Patient and/or jb4 family updated on plan of care and expected duration. Pain level reassessed. Pt appears more relaxed, verbalized a decrease in anxiety, respirations continue to be labored. wheezing is diminished bilaterally. Patient states feeling better. Patient states symptoms have improved. 21:20 Reassessment: Attempted to call report, instructed to wait for call back. jb4 Vital Signs: 18:30 BP 154 / 124; Pulse 101; Resp 33; Temp 98.3; Pulse Ox 78% on R/A; hb 18:47 BP 155 / 106; Pulse 97; Resp 28; Pulse Ox 99% on 30% BiPAP; Pain 0/10; tw2 19:10 BP 106 / 88; Pulse 97; Resp 22; Pulse Ox 99% on 100% BiPAP; jb4 20:45 BP 134 / 79; Pulse 100; Resp 24; Pulse Ox 96% on 3 lpm NC; jb4 21:17 BP 132 / 86; Pulse 93; Resp 20; Temp 97.8(TE); Pulse Ox 97% on 3 lpm NC; jb4 18:47 15/7 rate 16 tw2 ED Course: 18:27 Patient arrived in ED. mr 18:27 Sarbjit Juan MD is Private Physician. mr 18:28 Adrian Donald MD is Attending Physician. tw4 18:35 Inserted saline lock: 20 gauge in right forearm, using aseptic technique. em 18:37 Triage completed. hb 18:37 Arm band placed on. hb 18:40 Yogesh Cross, RN is Primary Nurse. em 18:40 Patient has correct armband on for positive identification. Placed in gown. Bed in low em position. Call light in reach. Side rails up X2. threat monitoring analyst on. Pulse ox on. NIBP on. Sitter at bedside. 18:40 Inserted saline lock: 20 gauge in left wrist, using aseptic technique. Blood collected. em 18:50 XRAY Chest (1 view) In Process Unspecified. EDMS 18:58 EKG done, by ED staff, reviewed by Adrian Donald MD. em 19:03 Margie Dixon MD is Hospitalizing Provider. tw4 19:35 Notified ED physician of a critical lab result(s). CKMB 11.1 Dr Donald notified. bb 21:35 No provider procedures requiring assistance completed. Patient admitted, IV remains in jb4 place. Administered Medications: 18:38 Drug: SOLU-Medrol 125 mg Route: IVP; Site: right forearm; em 19:00 Follow up: Response: No adverse reaction jb4 18:39 Drug: Magnesium Sulfate 1 grams Route: IVPB; Infused Over: 1 hrs; Site: right forearm; em 19:39 Follow up: Response: No adverse reaction; IV Status: Completed infusion jb4 18:40 Drug: Albuterol - atroVENT (3:1) (2.5 mg - 0.5 mg) 3 ml Route: Nebulizer; em 19:10 Follow up: Response: No adverse reaction jb4 19:54 Drug: Ativan 1 mg Route: PO; em 21:04 Follow up: Response: No adverse reaction; Anxiety decreased jb4 20:25 Drug: Albuterol 2.5 mg Route: Inhalation; jb4 21:00 Follow up: Response: No adverse reaction; Wheezing diminished jb4 20:25 Drug: AtroVENT Aerosol 0.5 mg Route: Inhalation; jb4 21:00 Follow up: Response: No adverse reaction; Wheezing diminished jb4 20:35 Drug: Zofran 4 mg Route: IVP; Site: left antecubital; jb4 21:19 Follow up: Response: No adverse reaction jb4 20:37 Drug: morphine 4 mg {Note: Rass score 1.} Route: IVP; Site: left antecubital; jb4 21:19 Follow up: Response: No adverse reaction; Pain is decreased; Anxiety decreased; RASS: jb4 Alert and Calm (0) Outcome: 19:04 Decision to Hospitalize by Provider. tw4 21:35 Admitted to Tele accompanied by nurse, via stretcher, room 428, with oxygen, with chart.jb4 21:35 Condition: stable 21:35 Discharge instructions given to patient, family, Instructed on the need for admit. 21:52 Patient left the ED. jb4 Signatures: Dispatcher [employer] PAZDC RyanJeny Edgar, RN Mariama Arreola, RN Fatuma Bang, RN Alexia Kimbrough, AIDEN WOLFE tw2 Michael Blanco, AIDEN WOLFE jb4 Adrian Donald MD MD tw4 Corrections: (The following items were deleted from the chart) 18:38 18:36 Presenting complaint: Arrived to ED by POV, in respiratory distress, unable to hb answer questions. hb 18:38 18:36 Transition of care: patient was not received from another setting of care. hb hb 18:38 18:36 Onset of symptoms was September 06, 2019 hb hb 18:38 18:36 Risk Assessment: Do you want to hurt yourself or someone else? Unable to obtain hbhb 18:38 18:36 Method Of Arrival: Ambulatory hb hb 18:38 18:36 Acuity: FORTINO 1 hb hb 18:44 18:38 Reassessment: Patient appears in no apparent distress at this time. provider at em bedside em 18:51 18:47 Pulse 97bpm; Resp 28bpm; Pulse Ox 99% 02 30% BiPAP; Pain 0/10; em em 19:12 18:47 BP 155 / 106; Pulse 97bpm; Resp 28bpm; Pulse Ox 99% 02 30% BiPAP; Pain 0/10; em tw2
[2019-09-06 19:21] LABS: Protime INR 1.04
[2019-09-06 19:33] LABS: Albumin 3.7 g/dL (3.4-5.0); Bilirubin Direct 0.2 mg/dL (0-0.2); Bilirubin Total 0.7 mg/dL (0.2-1.0); Magnesium 2.4 mg/dL (1.8-2.4); Potassium 3.8 mmol/L (3.5-5.1); Protein, Total 7.1 g/dL (6.4-8.2); Troponin (Emerg Dept Use Only) 0.41 ng/mL (0.0-0.045)
[2019-09-06 19:35] LABS: CKMB Creatine Kinase MB 11.1 ng/mL (0.3-3.6)
[2019-09-06] MEDS ORDERED: LORAZEPAM 1 MG TABLET ONE (19:54)
[2019-09-06] MEDS ORDERED: MORPHINE 4 MG/ML SYR ONE (20:36)
[2019-09-06] MEDS ORDERED: ONDANSETRON 4 MG/2 ML VIAL ONE (20:37)
[2019-09-06] MEDS ORDERED: ACETAMINOPHEN 500 MG TAB PO PRN (21:25)
[2019-09-06] MEDS ORDERED: ONDANSETRON 4 MG/2 ML VIAL IV PRN (21:25)
[2019-09-06 21:29] LABS: Arterial Blood Carboxyhemoglob 0.8 % (0-1.5); Blood Gas Oxyhemoglobin 97.9 % (94-97); Blood O2 Saturation 99.1 % (92-98.5)
[2019-09-06] MEDS ORDERED: NA CHLORIDE 0.9% 1,000 ML IV SCH (22:00)
[2019-09-06 23:55] VITALS: BMI 31.6
[2019-09-07] MEDS: ENOXAPARIN 100 MG/ML SYR SQ SCH ×3 (00:44→21:23)
[2019-09-07] MEDS ORDERED: ENOXAPARIN 40 MG/0.4 ML SQ SCH ×2 (01:00→09:00)
[2019-09-07] MEDS: IPRATROPIUM BROM 0.5MG/2.5ML NEB SCH ×4 (01:20→20:00)
[2019-09-07] MEDS: ALBUTEROL 2.5 MG/3 ML NEB SOL NEB SCH ×4 (01:20→20:00)
[2019-09-07] MEDS ORDERED: METHYLPREDNISOLONE 125 MG INJ IV ONE ×2 (02:02→06:45)
[2019-09-07 06:40] LABS: Absolute Lymphocytes (CBC) 0.7 K/uL (0.7-4.9); Basophils % 0.1 % (0-1.3); Hematocrit 44.1 % (36.0-45.0); Lymphocytes % 8.5 % (15.3-44.8); MPV 8.9 fL (7.6-11.3); RBC Red Blood Cell Count 4.82 M/uL (3.86-4.86)
[2019-09-07] MEDS ORDERED: ALBUTEROL 2.5 MG/3 ML NEB SOL NEB ONE (06:46)
[2019-09-07 07:16] LABS: Albumin 3.6 g/dL (3.4-5.0); Bilirubin Total 0.8 mg/dL (0.2-1.0); Magnesium 2.4 mg/dL (1.8-2.4); Phosphorus 2.6 mg/dL (2.5-4.9); Potassium 4.6 mmol/L (3.5-5.1); Protein, Total 7.1 g/dL (6.4-8.2)
[2019-09-07 07:17] LABS: Troponin I 6.13 ng/mL (0.0-0.045)
--- NOTE | 2019-09-07 08:40 | P.HP ---
Certification for Inpatient Patient admitted to: Inpatient With expected LOS: >2 Midnights Patient will require the following post-hospital care: None Practitioner: I am a practitioner with admitting privileges, knowledge of patient current condition, hospital course, and medical plan of care. Services: Services provided to patient in accordance with Admission requirements found in Title 42 Section 412.3 of the Code of Federal Regulations Patient History Date of Service: 09/06/19 Reason for admission: Acute respiratory distress History of Present Illness: Patient is a 74-year-old female came to the hospital with difficulty breathing. She has been feeling poorly for the last few days with an upper respiratory infection. She actually was in the ER yesterday with similar complaints. Since she was not improving, she came back into the hospital for further evaluation. In the emergency room she was in severe respiratory distress initially so they placed her on BiPAP. Initial ABGs were not performed. Repeat ABG showed patients blood gases were stable. BiPAP was removed. Emergency room physician downgraded the patient to telemetry. Patient was still having some dyspnea on exertion but denied any other complaints. Her troponins were elevated but she neither had chest pain nor EKG findings that were concerning for acute ischemia. She has been given aspirin, Plavix, Lovenox , and statin therapy. Low-dose beta-jasiel if her blood pressure is stable. Continue with nebs, steroids, and antibiotics. Pulmonary consultation as well. Allergies No Known Allergies Allergy (Verified 09/07/19 00:05) - Past Medical/Surgical History Diabetic: No -: asthma -: COPD -: Pneumonia -: HTN -: "irregular heartbeat" -: hysterectomy -: cruz - Family History Father Family History: Reviewed- Non-Contributory - Social History Smoking Status: Former smoker Alcohol use: Yes CD- Drugs: No Caffeine use: Yes Place of Residence: Home Review of Systems 10-point ROS is otherwise unremarkable Physical Examination - Vital Signs Temperature: 97.1 F Blood Pressure: 111/62 Pulse: 78 Respirations: 20 Pulse Ox (%): 97 - Physical Exam General: Alert, In no apparent distress, Oriented x3 HEENT: Atraumatic, PERRLA, Mucous membr. moist/pink, EOMI, Sclerae nonicteric Neck: Supple, 2+ carotid pulse no bruit, No LAD, Without JVD or thyroid abnormality Respiratory: Diminished, Expiratory wheezes Cardiovascular: Regular rate/rhythm, Normal S1 S2, No murmurs Gastrointestinal: Normal bowel sounds, Soft and benign, Non-distended, No tenderness, No rebound, No guarding Musculoskeletal: No clubbing, No swelling, No tenderness Integumentary: No rashes Neurological: Normal gait, Normal speech, Normal strength at 5/5 x4 extr, Normal tone, Sensation intact, Cranial nerves 3-12 intact, Normal affect Lymphatics: No axilla or inguinal lymphadenopathy - Studies Laboratory Data (last 24 hrs) 09/06/19 19:00: PT 12.2, INR 1.04, APTT 25.8 09/06/19 19:00: WBC 16.9 H D, Hgb 15.6 H, Hct 47.0 H, Plt Count 301 D 09/06/19 19:00: Sodium 125 L, Potassium 3.8, BUN 10, Creatinine 0.70, Glucose 213 H, Magnesium 2.4, Total Bilirubin 0.7, AST 27, ALT 24, Alkaline Phosphatase 75, Lipase 73 09/06/19 18:36: PT Cancelled, INR Cancelled Assessment & Plan - Problems (Diagnosis) (1) Acute exacerbation of COPD with asthma Current Visit: Yes Status: Acute (2) Elevated troponin Current Visit: Yes Status: Acute (3) Non-STEMI (non-ST elevated myocardial infarction) Current Visit: Yes Status: Acute (4) Leukocytosis Current Visit: Yes Status: Acute (5) Hyponatremia Current Visit: Yes Status: Acute - Plan 1. Continue with IV antibiotics 2. Awaiting sputum and blood culture 3. Repeat chest x-ray 4. Will proceed with CT scan of the chest if symptoms are not improved 5. Ppulmonary consultation 6. Continue with nebs as needed 7. O2 per protocol 8. Hep-Lock IV 9. Repeat labs including CBC and renal function in a.m. 10. Cardiology consultation 11. Echocardiogram 12. Anti-platelet therapy, anti coagulation, beta-jasiel, statin, and O2 ; Nitro if she starts having chest pain. At this time she is not having any chest pain. 13. GI and DVT prophylaxis Discharge Plan: Home Plan to discharge in: Greater than 2 days - Advance Directives Does patient have a Living Will: No Does patient have a Durable POA for Healthcare: Yes - Code Status/Comfort Care Code Status Assessed: Yes Code Status: Full Code Critical Care: No Time Spent Managing PTS Care (In Minutes): 50
--- NOTE | 2019-09-07 08:52 | P.PN ---
Subjective Date of Service: 09/07/19 Chief Complaint: Acute respiratory distress Subjective: No new changes Review of Systems 10-point ROS is otherwise unremarkable Physical Examination - Vital Signs Temperature: 97.1 F Blood Pressure: 111/62 Pulse: 78 Respirations: 20 Pulse Ox (%): 97 - Physical Exam General: Alert, In no apparent distress, Oriented x3 HEENT: Atraumatic, Normocephalic, PERRLA Neck: 2+ carotid pulse no bruit, JVD not distended Respiratory: Inspiratory wheezes, Rhonchi/gurgles Cardiovascular: Regular rate/rhythm, Normal S1 S2 Gastrointestinal: Normal bowel sounds, Soft and benign, Non-distended Musculoskeletal: No clubbing, No swelling Integumentary: No rashes, No breakdown Neurological: Normal gait, Normal speech, Normal strength at 5/5 x4 extr - Studies Laboratory Data (last 24 hrs) 09/06/19 19:00: PT 12.2, INR 1.04, APTT 25.8 09/06/19 19:00: WBC 16.9 H D, Hgb 15.6 H, Hct 47.0 H, Plt Count 301 D 09/06/19 19:00: Sodium 125 L, Potassium 3.8, BUN 10, Creatinine 0.70, Glucose 213 H, Magnesium 2.4, Total Bilirubin 0.7, AST 27, ALT 24, Alkaline Phosphatase 75, Lipase 73 09/06/19 18:36: PT Cancelled, INR Cancelled Assessment & Plan - Problems (Diagnosis) (1) Acute exacerbation of COPD with asthma Current Visit: Yes Status: Acute (2) Elevated troponin Current Visit: Yes Status: Acute (3) Hyponatremia Current Visit: Yes Status: Acute (4) Leukocytosis Current Visit: Yes Status: Acute (5) Non-STEMI (non-ST elevated myocardial infarction) Current Visit: Yes Status: Acute Plan to discharge in: 24 Hours Physician Review: Patient Assessed, Agree with Above Assessment and Plan Physician Review Additional Text: # COPD exac- c/w steroids /nebs - add mucomyst for reported congetsion - will follow with dose magnesium # Elevated BNP /Presumed CHF - likley esystolic -follow Echo in am - may be causing SOB - start IV lasix # Hyponatrmeia- may be due to CHF -obtain uric acid level , TSH - dose conivaptan today or tolvaptan - if not available , will start salt tabs with lasix - restrict free water to <1.5 L /day # NSTEMI - follow cardiology , plan for cath when more stable -c/w lovenox /asa/plavix -cardiology Dr booth d/w # HTN - controlled # DVT prop- on lovenox
--- NOTE | 2019-09-07 08:52 | RAD REPORT ---
EXAM DESCRIPTION: RAD - Chest Single View - 09/07/2019 8:11 am CLINICAL HISTORY: pneumonia COMPARISON: Chest Single View dated 09/06/2019; Chest Pa And Lat (2 Views) dated 09/04/2019 TECHNIQUE: AP portable chest image was obtained 09/07/2019 8:11 am . FINDINGS: Lung volumes are low. No new or progressive lung parenchymal process. Heart and vasculatur e are normal. No measurable pleural effusion and no pneumothorax. No acute bony abnormality seen. No acute aortic findings suspected. IMPRESSION: No acute cardiopulmonary process. No significant change from comparison.
[2019-09-07] MEDS ORDERED: FUROSEMIDE 40 MG/4 ML VIAL IV SCH (09:00)
[2019-09-07] MEDS ORDERED: METOPROLOL TAR 25 MG TAB PO SCH ×2 (09:00→18:00)
[2019-09-07] MEDS ORDERED: ASPIRIN EC 81 MG TAB PO ONE (09:00)
[2019-09-07] MEDS: CLOPIDOGREL 75 MG TABLET PO SCH (09:03)
[2019-09-07] MEDS: PIPER/TAZO/NS 3.375gm 3.375 GM/100 ML BAG IVPB SCH ×2 (09:04→16:07)
[2019-09-07] MEDS: ACETYLCYST 20% 4 ML VIAL IH SCH ×2 (09:20→20:00)
[2019-09-07 09:59] LABS: Thyroid Stimulating Hormone 0.329 uIU/mL (0.360-3.740)
[2019-09-07] MEDS: SODIUM CHLORIDE 1 GM TAB PO SCH ×3 (10:19→21:23)
[2019-09-07 10:30] LABS: Blood Morphology Comment NOT SEEN (NOT SEEN); Platelet Estimate ADEQ
[2019-09-07] MEDS: METHYLPREDNISOLONE 125 MG INJ IV SCH ×2 (12:44→17:17)
--- NOTE | 2019-09-07 12:55 | CON ---
Date of Consultation: 09/07/[address] Dixon on 09/06/2019. Reason For Consultation: Shortness of breath and elevated troponin. Patient was seen on 09/07/2019. History Of Present Illness: Ms. Finley is a 74-year-old woman has a history of hypertension, COPD a nd irregular heartbeat, used to see Dr. Juan and Dr. Casanova. She came in mostly with shortness of b reath. No pain. No chest pain. No nausea, vomiting, diaphoresis. Has had no PND, orthopnea, or pe dustin edema. She knows that her shortness of breath is secondary to her COPD. She was hypoxic when sh e came in. BiPAP was used. Her blood gas on BiPAP is 175, pCO2 46, with a pH of 7.34. She continue s to have severe wheezing. She is getting inhalers Lovenox and Solu-Medrol and improving slowly. Tr skylar came back pretty high at 3.55, and I was asked to see her. Allergies: NEGATIVE. Review of Systems: Negative. Social History: Negative. Family History: Negative. Home Medications: Include losartan and aspirin. Physical Examination: General: She appears to be in [id number]-ipnexcpy respiratory distress on BiPAP. She was in sinus rhyt hm, afebrile. HEENT: Negative. Neck: Supple with no bruit. Chest: Diffuse expiratory and expiratory wheezing. No rales. Cardiac : Revealed regular rhythm and rate. No murmurs, gallops, or rubs. Abdomen: Benign. Extremities: Revealed no clubbing, cyanosis, or edema. Diagnostic Data: Her sodium was 125, chloride is 91. Chest x-ray shows COPD. Glucose of 213. Trop onin was 3.55. Impression And Plan: Cnh-YE-muisodzit myocardial infarction. Certainly could be secondary to hypoxi a and chronic obstructive pulmonary disease. An echocardiogram is pending. I think we need to hold her losartan as that may be contributing to the hyponatremia. We need to try to fix her electrolytes , hydrate her, check an echocardiogram and depending how she feels, we will plan a heart catheterizat ion in the near future. NB/MODL Voice ID: [id number] Report ID: [id number]
[2019-09-07] MEDS ORDERED: INFLUENZA VACCINE (for 3y+) 0.5 ML DOSE IMVAC ONE (13:00)
[2019-09-07 13:22] LABS: Potassium 4.1 mmol/L (3.5-5.1)
[2019-09-07] MEDS: ATORVASTATIN 40 MG TAB PO SCH (21:23)
[2019-09-08] MEDS: PIPER/TAZO/NS 3.375gm 3.375 GM/100 ML BAG IVPB SCH ×2 (01:00→08:51)
[2019-09-08] MEDS: METHYLPREDNISOLONE 125 MG INJ IV SCH ×2 (01:08→05:01)
[2019-09-08] MEDS: IPRATROPIUM BROM 0.5MG/2.5ML NEB SCH ×2 (02:15→08:00)
[2019-09-08] MEDS: ALBUTEROL 2.5 MG/3 ML NEB SOL NEB SCH ×2 (02:15→08:00)
[2019-09-08 02:48] LABS: Urine Appearance CLEAR; Urine Bilirubin NEGATIVE (NEG); Urine Blood NEGATIVE (NEG); Urine Color YELLOW; Urine Glucose NEGATIVE (NEG); Urine Protein NEGATIVE (NEG); Urine Specific Gravity <=1.005 (1.005-1.030); Urine Urobilinogen 0.2 mg/dL (0.2-1.0)
[2019-09-08 02:50] LABS: Urine Microscopic Reflex NO UMIC
--- NOTE | 2019-09-08 03:17 | CON ---
Date of Consultation: 09/07/2019 Consulting Physician: Dr. Luzma Walker. Reason For Consultation: Hyponatremia. History Of Present Illness: This is a 74-year-old female with significant past medical history of br onchial asthma/COPD, hypertension, cardiac arrhythmia. Patient was in her regular state of health ac cording to her. Since the holiday, being started feeling sick, but she was resistant to come to the emergency room. Patient started having some shortness of breath with chest tightness, could not keep it up. For that reason, brought to the hospital. Primary workup showed [id number]-[id number] MD and hyp onatremia. For that reason, we have been consulted. Patient being on ARB, losartan. Patient denied taking any nonsteroidal. Denied any other medical problem. Patient admits that she is being drinki ng a lot of water lately. Past Medical History: Includes: 1.COPD secondary to secondary smoker. 2.Hypertension. 3.Cardiac dysrhythmia. Past Surgical History: Includes: 1.Cholecystectomy. 2.Hysterectomy. Family History: Positive for hypertension. Social History: Denies smoking. Active alcohol. Denies drug abuse. Review of Systems: Head and Neck: No red eye. No ear pain. GI: Decreased intake. : No polyuria, no dysuria, no hematuria. Calculus Professor: No vaginal discharge. Respiratory: Has shortness of breath. Cardiovascular: Has chest tightness. Endocrine: No polydipsia. Skin: No rash. Neuro: No neuropathy. Musculoskeletal: No joint pain. Physical Examination: Vital Signs: When I saw the patient, blood pressure 111/62, pulse of 88. Chest: Clear to auscultation. Heart: S1-S2 regular. Abdomen: Soft, nontender. Extremities: No edema. Neurologic: Alert, oriented x3. No focal. No tremor. Laboratory Data: WBC 8.4, H and H 15.2/44.1, platelets 282. Sodium 124, potassium 4.1, bicarb 27, B UN 11, creatinine 0.9, calcium 8.1, uric acid 2, TSH 0.3. Upon presentation to the hospital, sodium 125, potassium 3.8, creatinine 0.7, lactic acid 2.7. Troponin positive. BNP 4032. Urinalysis; urin e osmolality 194, urine sodium 8, urine potassium is 16. Assessment And Plan: 1.Hyponatremia, possibly secondary to syndrome of inappropriate antidiuretic hormone/secondary to AR B supported with uric acid, but questionable of depletional given the presence of low sodium in the u rine. I am going to go ahead and place the patient on salt tablet and Lasix. We will repeat the lab tomorrow. We will send for cortisol and we will follow up. 2.Hypertension, controlled, optimal. Given the hyponatremia, I am going to hold ARB especially with the low blood pressure. 3.Lfn-HW-mvrdhqjub myocardial infarction, as by Cardiology. DEVANTE/AYE Voice ID: [id number] Report ID: [id number]
--- NOTE | 2019-09-08 05:29 | EKG ---
Test Date: 2019-09-06 Test Time: 18:58:45 Requisition Approver: GEORGE MEASUREMENT RESULTS: Intervals: Rate: 93 AL: 198 QRSD: 122 QT: 398 QTc: 494 [place]: P: 86 AL: 198 QRS: -19 T: 66 INTERPRETIVE STATEMENTS: Normal sinus rhythm Right bundle branch block Septal infarct, age undetermined Abnormal ECG No previous ECG available for comparison Electronically Signed On 09-08-19 05:28:43 METAL [employer]IVETER by Ger Jimenez
[2019-09-08 06:44] LABS: Absolute Lymphocytes (CBC) 0.9 K/uL (0.7-4.9); Basophils % 0.2 % (0-1.3); Hematocrit 39.8 % (36.0-45.0); Lymphocytes % 6.7 % (15.3-44.8); MPV 8.7 fL (7.6-11.3); RBC Red Blood Cell Count 4.39 M/uL (3.86-4.86)
[2019-09-08 07:13] LABS: Albumin 3.2 g/dL (3.4-5.0); Bilirubin Total 0.6 mg/dL (0.2-1.0); Phosphorus 2.4 mg/dL (2.5-4.9); Potassium 4.6 mmol/L (3.5-5.1); Protein, Total 6.2 g/dL (6.4-8.2)
[2019-09-08] MEDS: ACETYLCYST 20% 4 ML VIAL IH SCH (08:00)
[2019-09-08 08:32] LABS: Blood Morphology Comment NOT SEEN (NOT SEEN); Platelet Estimate ADEQ; Urine White Blood Cell Casts OK
[2019-09-08] MEDS: CLOPIDOGREL 75 MG TABLET PO SCH (08:49)
[2019-09-08] MEDS: ENOXAPARIN 100 MG/ML SYR SQ SCH ×2 (08:50→20:46)
[2019-09-08] MEDS: SODIUM CHLORIDE 1 GM TAB PO SCH ×3 (08:51→20:47)
[2019-09-08] MEDS ORDERED: FUROSEMIDE 40 MG/4 ML VIAL IV SCH (09:00)
[2019-09-08] MEDS ORDERED: ALBUTEROL 2.5 MG/3 ML NEB SOL NEB PRN (09:25)
[2019-09-08] MEDS ORDERED: IPRATROPIUM BROM 0.5MG/2.5ML NEB PRN ×2 (09:25→15:00)
--- NOTE | 2019-09-08 09:54 | RAD REPORT ---
EXAM DESCRIPTION: RAD - Chest Pa And Lat (2 Views) - 09/08/2019 9:40 am CLINICAL HISTORY: SOB, evaluate for pneumonia COMPARISON: Chest Single View dated 09/07/2019; Chest Single View dated 09/06/2019; Chest Pa And Lat (2 Views) dated 09/04/2019 TECHNIQUE: Frontal and lateral views of the chest were obtained. FINDINGS: The lungs are normal volume. Baseline interstitial pattern is prominent but stable. Medial left base remains hazy. No focal consolidation or density seen to localize a bacterial pneumonia. No significant failure or volume overload findings seen. Heart size is normal and central vasculature is within normal limits. No pleural effusion or pneu mothorax seen. No acute bony finding noted. No aortic abnormality. IMPRESSION: Chronic interstitial pattern similar to comparison. No new or progressive finding.
--- NOTE | 2019-09-08 10:19 | P.PN ---
Subjective Date of Service: 09/08/19 Primary Care Provider: Dr. Juan; Cardiology-Dr. Casanova Chief Complaint: Acute respiratory distress Subjective: Improving (Patient feels much improved. Less shortness of breath noted.) Physical Examination - Vital Signs Temperature: 97.0 F Blood Pressure: 116/73 Pulse: 70 Respirations: 18 Pulse Ox (%): 93 - Physical Exam General: Alert, In no apparent distress, Cooperative HEENT: Atraumatic Neck: Supple Respiratory: Clear to auscultation bilaterally, Normal air movement Cardiovascular: Normal pulses, Regular rate/rhythm Gastrointestinal: Normal bowel sounds, Soft and benign, Non-distended, No masses , No rebound, No guarding Musculoskeletal: No tenderness, No warmth Neurological: Normal speech, Normal strength at 5/5 x4 extr, Normal tone - Studies Medications List Reviewed: Yes Assessment & Plan Discharge Plan: Home Plan to discharge in: 48 Hours Physician Review Additional Text: Impression: Shortness of breath secondary to COPD exacerbation complicated with likely acute on chronic systolic CHF Hyponatremia likely related to CHF Elevated cardiac enzymes secondary to NSTEMI Hypertension Plan: Shortness of breath secondary to COPD exacerbation complicated with likely acute on chronic systolic CHF: Patient has improved. Patient continues on 1500 cc per day fluid restriction and salt tablets. Will change Lasix to oral. Chest x-ray shows improvement. Doubt infectious process. Will discontinue IV antibiotic therapy. Will check pro calcitonin. Continue COPD medication/ treatment. Wean off oxygen. Will adjust medication. Will physical therapy assess ambulation. Echo pending. Discussed with cardiology. Cardiology recommends that the patient have heart catheterization. Cardiology recommends that I get in contact with her outpatient technical agronomist-Dr. Casanova to determine whether heart catheterization needs to be done inpatient versus outpatient. Will continue to monitor closely. Hyponatremia likely related to CHF: Continue with nephrology recommendation. Patient on 1500 fluid restriction and salt tablets. Await echocardiogram. Continue to hold losartan. IV Lasix adjusted to oral. Elevated cardiac enzymes secondary to NSTEMI: Continue with aspirin, Plavix and Lovenox. Case discussed with cardiology. Echocardiogram pending. Cardiology recommends that the patient have heart catheterization. Cardiology also recommends to get in contact with outpatient technical agronomist Dr. Casanova to determine whether heart catheterization needs to be done inpatient versus outpatient. I have left a message with Dr. Casanova's office. Await recommendations. Hypertension: Continue to hold losartan due to hyponatremia. Blood pressure stable off medication Time Spent Managing Pts Care (In Minutes): 55
--- NOTE | 2019-09-08 12:43 | P.CNS ---
Date of Consult: 09/08/19 Primary Care Provider: Dr. Juan; Cardiology-Dr. Casanova Chief Complaint: Acute respiratory distress History of Present Illness: Patient is 74 years of age has had chronic bronchitis for number of years worse during wintertime had recurrent episodes of chronic bronchitis and treated with antibiotics came in again became worse started in July went to urgent care was treated with steroids antibiotics became acutely worse ended up here in the hospital she was hypoxic hypercarbic patient was informed that she has a history of asthma denies any chest pain seeing Cardiology as an outpatient Allergies No Known Allergies Allergy (Verified 09/07/19 00:05) Home Medications: Albuterol Inhaler [Ventolin Inhaler*] 1 puff IN Q4H PRN 09/07/19 Aspirin 1 tab PO DAILY 09/07/19 Azithromycin [Zithromax] 250 mg PO DAILY 09/07/19 Benzonatate [Tessalon Perle*] 2 cap PO TID PRN 09/07/19 Losartan Potassium [Cozaar] 1 tab PO DAILY 09/07/19 - Past Medical/Surgical History Diabetic: No -: asthma -: Pneumonia -: HTN -: "irregular heartbeat" -: hysterectomy -: cruz - Family History Father Family History: Reviewed- Non-Contributory - Social History Alcohol use: Yes CD- Drugs: No Caffeine use: Yes Place of Residence: Home Review of Systems 10-point ROS is otherwise unremarkable Physical Examination Temp Pulse Resp BP Pulse Ox 97.2 F 75 18 115/54 L 98 09/08/19 12:00 09/08/19 12:00 09/08/19 12:00 09/08/19 12:00 09/08/19 12:00 General: Alert, Oriented x3 Respiratory: Expiratory wheezes Cardiovascular: No edema, Regular rate/rhythm Gastrointestinal: Normal bowel sounds, Soft and benign Musculoskeletal: No clubbing, No swelling, No contractures Integumentary: No rashes, No breakdown, No cyanosis Neurological: Normal gait, Normal speech - Problems (1) Acute exacerbation of COPD with asthma Current Visit: Yes Status: Acute Plan: Patient is 74 years of age has recurrent episodes of chronic bronchitis the past 4-5 years that her who used to smoke of 4-1/2 packs a day . He has hypoxic hypercarbic patient's troponin is very elevated although she has some old EKG changes mildly hypernatremic patient's chest x-ray presume COPD changes echocardiogram is pending she does see a cigarette packer every year maybe troponin changes may be related to the severe hypoxemia she will need outpatient bronchodilators and a scheduled basis patient pulmonary function testing and cardiac evaluation agree with heart catheterization
--- NOTE | 2019-09-08 14:02 | PN ---
Malia is a 74-year-old with a previous history of coronary heart disease, but she has elevated trop onins associated with dyspnea. No chest pain. EKGs do not contributing much to the equation that it is clear that in addition to her respiratory difficulty from underlying lung disease, she has cid ry heart disease. There is a septal infarct of indeterminate age and troponins elevated. I had bijan mmended cardiac catheterization to the patient. She seemed to react rather negatively to it and she wants to get Dr. Casanova's opinion. In my opinion, the patient should be transferred and not dischar ged home and undergo a cardiac cath sooner rather than later. ARCELIA/AYE Voice ID: [id number] Report ID: [id number]
[2019-09-08] MEDS: ARFORMOTEROL TARTRATE 15 MCG/2 ML VIAL.NEB NEB SCH ×2 (14:31→22:28)
[2019-09-08] MEDS: POTASS/SODIUM PHOSPHATE 1 PKT POWD.PACK PO SCH ×3 (14:56→16:27)
[2019-09-08] MEDS: ATORVASTATIN 40 MG TAB PO SCH (20:46)
[2019-09-08] MEDS: predniSONE 20 MG TAB PO SCH (20:47)
[2019-09-08] MEDS ORDERED: predniSONE 10 MG TAB PO SCH (21:00)
--- NOTE | 2019-09-09 03:37 | PN ---
Date of Progress Note: 09/08/2019 Chief Complaint: Hyponatremia. History Of Present Illness: The patient is a 74-year-old woman with history of COPD, asthma, hypertension, cardiac arrhythmia. She came to the hospital because of weakness, generalized malaise as well as feeling sick. She was found to have shortness of breath, also was complaining of chest tightness. Review of Systems: Today, the patient is asymptomatic. Denies fever, chills. Physical Examination: Lungs: Diminished breath sounds at bases, few rhonchi. Heart: S1, S2. No pericardial friction rub. Abdomen: Soft, benign, nontender. Extremities: No edema. Laboratory Data: WBC 12.9, hemoglobin 13.4, hematocrit 39.8, platelet count 248 ,000. Sodium 128, potassium 4.6, chloride 92, CO2 of 29, BUN 15, creatinine 0.93, glucose 140, phosphorus 2.4, calcium 8.5. Impression And Plan: 1. Hyponatremia hypoosmolar, sodium level has improved since yesterday. Continue p.o. fluid restriction. Monitor sodium level. Avoid nephrotoxic medication. Avoid nonsteroidal anti-inflammatory medication which may be contributory to hyponatremia. 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 Uric acid remains in the lower range, which goes along with syndrome of inappropriate antidiuretic hormone. Patient will continue sodium chloride tablets and Lasix to control hyponatremia, hypertension, controlled. 2. [id number] myocardial infarction. Patient is consulted by Cardiology. I spent total 35 min including 25 min to coordinate care plan. SUNITA/AYE Voice ID: [id number] Report ID: [id number] MEAGAN
[2019-09-09 04:22] LABS: Absolute Lymphocytes (CBC) 0.9 K/uL (0.7-4.9); Hematocrit 40.8 % (36.0-45.0); Lymphocytes % 6.8 % (15.3-44.8); RBC Red Blood Cell Count 4.45 M/uL (3.86-4.86)
[2019-09-09 04:31] LABS: Albumin 2.9 g/dL (3.4-5.0); Phosphorus 2.3 mg/dL (2.5-4.9); Potassium 4.1 mmol/L (3.5-5.1)
--- NOTE | 2019-09-09 07:37 | ECHO ---
HEIGHT: 5 ft 7 in WEIGHT: 201 lb 11.2 oz DATE OF STUDY: 09/08/[address]: Jaya Merrill MD 2-DIMENSIONAL: YES M.MODE: YES DOPPLER: YES COLOR FLOW: YES TDS: PORTABLE: DEFINITY: BUBBLE STUDY: DIAGNOSIS: CHEST PAIN/ SHORTNESS OF BREATH CARDIAC HISTORY: CATHERIZATION: NO SURGERY: NO PROSTHETIC VALVE: NO PACEMAKER: NO MEASUREMENTS (cm) DIASTOLIC (NORMALS) SYSTOLIC (NORMALS) IVSd 1.2 (0.6-1.2) LA Diam (1.9-4.0) LVEF 60-69% LVIDd 3.5 (3.5-5.7) LVIDs 2.6 (2.0-3.5) %FS 25% LVPWd 1.3 (0.6-1.2) Ao Diam 3.6 (2.0-3.7) 2 DIMENSIONAL ASSESSMENT: RIGHT ATRIUM: NORMAL LEFT ATRIUM: DILATED RIGHT VENTRICLE: NORMAL LEFT VENTRICLE: LEFT VENTRICULAR HYPERTROPHY TRICUSPID VALVE: NORMAL MITRAL VALVE: NORMAL PULMONIC VALVE: NORMAL AORTIC VALVE: NORMAL PERICARDIAL EFFUSION: NONE AORTIC ROOT: NORMAL LEFT VENTRICULAR WALL MOTION: NORMAL DOPPLER/COLOR FLOW: IMPAIRED LEFT VENTRICULAR RELAXATION COMMENTS: NORMAL LEFT VENTRICULAR EJECTION FRACTION. LEFT VENTRICULAR HYPERTROPHY. DILATED LEFT ATRIUM. IMPAIRED LEFT VENTRICULAR RELAXATION. TECHNOLOGIST: TEO HARRIS
--- NOTE | 2019-09-09 08:43 | RAD REPORT ---
EXAM DESCRIPTION: US - Renal Ultrasound-Complete - 09/09/2019 7:48 am CLINICAL HISTORY: ckd Flank pain COMPARISON: No comparisons FINDINGS: Both kidneys are normal in size, shape and echotexture. The right kidney measures 11.0 x 4.4 x 4.3 cm. No hydronephrosis, focal mass or perinephric fluid. The left kidney measures 10.1 x 5.5 x 4.9 cm. No hydronephrosis, focal mass or perinephric fluid. The urinary bladder is incompletely distended without gross abnormality seen. IMPRESSION: Unremarkable renal sonogram.
[2019-09-09] MEDS ORDERED: FUROSEMIDE 40 MG TABLET PO SCH (09:00)
[2019-09-09] MEDS ORDERED: SMZ./TMP. 800/160 MG TABLET PO SCH (09:00)
--- NOTE | 2019-09-09 09:51 | P.PN ---
Subjective Date of Service: 09/09/19 Primary Care Provider: Dr. Juan; Cardiology-Dr. Casanova Chief Complaint: Acute respiratory distress Subjective: Improving, Doing well Physical Examination - Vital Signs Temperature: 97.0 F Blood Pressure: 118/60 Pulse: 62 Respirations: 17 Pulse Ox (%): 95 - Physical Exam General: Alert, In no apparent distress, Oriented x3 HEENT: Atraumatic Neck: Supple Respiratory: Clear to auscultation bilaterally, Normal air movement Cardiovascular: Normal pulses, Regular rate/rhythm Gastrointestinal: Normal bowel sounds, Soft and benign, Non-distended Neurological: Normal speech, Normal strength at 5/5 x4 extr, Normal tone - Studies Medications List Reviewed: Yes Assessment & Plan Discharge Plan: Home Plan to discharge in: 24 Hours Physician Review Additional Text: Impression: Shortness of breath secondary to COPD exacerbation complicated with likely acute on chronic systolic CHF and sputum culture positive for MRSA Hyponatremia likely related to CHF Elevated cardiac enzymes secondary to NSTEMI Hypertension Plan: Shortness of breath secondary to COPD exacerbation complicated with likely acute on chronic systolic CHF and sputum culture positive for MRSA: Patient has improved. Patient continues on 1500 cc per day fluid restriction and salt tablets. Patient remains on Lasix. Chest x-ray shows improvement. Sputum culture was positive for MRSA. Bactrim has been started. Continue with COPD treatment. Will wean off oxygen. Awaiting discussion with her salesperson terrazzo tiles - Dr. Casanova to determine whether heart catheterization needs to be done inpatient versus outpatient. If planned for outpatient heart catheterization then patient may BP to be discharge today. Patient may require oxygen at discharge. Await further recommendations by Cardiology. Hyponatremia likely related to CHF: Continue with nephrology recommendation. Patient on 1500 fluid restriction and salt tablets. Echocardiogram reviewed. Continue to hold losartan. Patient on oral Lasix. Elevated cardiac enzymes secondary to NSTEMI: Continue with aspirin, Plavix and Lovenox. Case discussed with cardiology. Echocardiogram reviewed. Cardiology recommends that the patient have heart catheterization. Cardiology also recommends to get in contact with outpatient salesperson terrazzo tiles Dr. Casanova to determine whether heart catheterization needs to be done inpatient versus outpatient. I have left a message with Dr. Casanova's office. Await recommendations. Hypertension: Continue to hold losartan due to hyponatremia. Blood pressure stable off medication Time Spent Managing Pts Care (In Minutes): 55
[2019-09-09] MEDS: POTASS/SODIUM PHOSPHATE 1 PKT POWD.PACK PO SCH ×3 (10:11→12:19)
[2019-09-09] MEDS: CLOPIDOGREL 75 MG TABLET PO SCH (10:13)
[2019-09-09] MEDS: predniSONE 20 MG TAB PO SCH (10:14)
[2019-09-09] MEDS: ENOXAPARIN 100 MG/ML SYR SQ SCH (10:15)
--- NOTE | 2019-09-09 11:29 | P.DS ---
Admission Date: 09/06/19 Discharge Date: 09/09/19 Primary Care Provider: Dr. Juan; Cardiology-Dr. Casanova Disposition: ROUTINE DISCHARGE Discharge Condition: GOOD Reason for Admission: Acute respiratory distress Consultations: Cardiology-Dr. Jimenez Nephrology-Dr. Bernstein Pulmonary-Dr. Guillory Procedures: CXR: FINDINGS: The lungs are normal volume. Baseline interstitial pattern is prominent but stable. Medial left base remains hazy. No focal consolidation or density seen to localize a bacterial pneumonia. No significant failure or volume overload findings seen. Heart size is normal and central vasculature is within normal limits. No pleural effusion or pneumothorax seen. No acute bony finding noted. No aortic abnormality. IMPRESSION: Chronic interstitial pattern similar to comparison. No new or progressive finding. ECHO: Ejection fraction 60% LEFT VENTRICULAR WALL MOTION: NORMAL DOPPLER/COLOR FLOW: IMPAIRED LEFT VENTRICULAR RELAXATION COMMENTS: NORMAL LEFT VENTRICULAR EJECTION FRACTION. LEFT VENTRICULAR HYPERTROPHY. DILATED LEFT ATRIUM. IMPAIRED LEFT VENTRICULAR RELAXATION. Renal US: FINDINGS: Both kidneys are normal in size, shape and echotexture. The right kidney measures 11.0 x 4.4 x 4.3 cm. No hydronephrosis, focal mass or perinephric fluid. The left kidney measures 10.1 x 5.5 x 4.9 cm. No hydronephrosis, focal mass or perinephric fluid. The urinary bladder is incompletely distended without gross abnormality seen. IMPRESSION: Unremarkable renal sonogram. Medical Problem list: Shortness of breath related to acute on chronic respiratory failure secondary to COPD exacerbation complicated with likely acute on chronic systolic CHF and sputum culture positive for MRSA Hyponatremia likely related to CHF Elevated cardiac enzymes secondary to NSTEMI Hypertension Hyperlipidemia Brief History of Present Illness: 74-year-old female presented to the emergency room with acute shortness of breath. Patient recently evaluated for upper respiratory infection. Patient was admitted for further evaluation. Patient required BiPAP. Hospital Course: Patient presented with shortness of breath with acute on chronic respiratory failure secondary to COPD exacerbation complicated with likely underlying acute on chronic diastolic CHF. The patient was treated during the course of her stay. Patient was seen by pulmonology and Cardiology. Ejection fraction 60%. Chest x-ray showed improvement. Patient was diuresed. Sputum culture was positive for MRSA. At discharge she is without significant shortness of breath. For this CHF, She will continue with a 1500 cc per day fluid restriction and low-salt diet. She is to monitor her weight daily. If her weight increases by more than 5 lb she is to contact her PCP for further evaluation. Patient will continue with Lasix 20 mg daily and salt tablet 1 g twice daily. She will follow up with nephrology in 1-2 weeks. Recommend to recheck BMP at that time. For her COPD and positive sputum culture, patient will continue with prednisone 20 mg daily for 5 days. Patient will also start with Symbicort 2 puffs twice daily and Pro air 2 puffs 3 times a day as needed for shortness of breath. Patient will continue with Bactrim DS 1 pill twice daily for 7 days. Recommend follow up with pulmonology to further monitor and address. Patient was also presented with hyponatremia. This is likely the CHF. Medications have been adjusted. Losartan has been discontinued. Nephrology was consulted. Renal ultrasound unremarkable. Sodium improved with fluid restriction and salt tablets. At discharge she will continue with Lasix 20 mg daily and salt tablet 1 g twice daily. Recommend to recheck BMP in 1 week. Patient may follow up with nephrology in 1-2 weeks. Patient had elevated cardiac enzymes likely secondary to NSTEMI. This was likely related to the acute respiratory failure. Patient was seen and evaluated by Cardiology. Patient was stabilize. Patient sees cardiology as an outpatient with Dr. Casanova. Dr. Jimenez recommended that I get in contact with her hedis abstractor to determine if the patient will require inpatient heart catheterization or as outpatient. Pulmonology was able to get in contact with her hedis abstractor. Cardiology recommends outpatient heart catheterization. Patient will follow up with cardiology this week. Outpatient heart catheterization will be set up. At discharge patient will continue with aspirin 81 mg daily, Plavix 75 mg daily, and Lipitor 40 mg daily. Blood pressure controlled without medication at this time. No need for medication. Recommend follow up with Cardiology this week to further address. Patient with hypertension. Medications have been adjusted due to hyponatremia. Patient no longer on losartan. Blood pressure remained stable off medication. Recommend to monitor blood pressure daily. No need for medication at this time. Vital Signs/Physical Exam: Temp Pulse Resp BP Pulse Ox 97.0 F 62 17 118/60 95 09/09/19 09:51 09/09/19 09:51 09/09/19 09:51 09/09/19 09:51 09/09/19 09:51 General: Alert, In no apparent distress, Oriented x3, Cooperative HEENT: Atraumatic Neck: Supple Respiratory: Clear to auscultation bilaterally, Normal air movement Cardiovascular: Normal pulses, Regular rate/rhythm Gastrointestinal: Normal bowel sounds, Soft and benign, Non-distended, No tenderness, No masses, No rebound, No guarding Musculoskeletal: No erythema, No tenderness, No warmth Integumentary: No tenderness/swelling, No erythema, No warmth, No cyanosis Neurological: Normal speech, Normal strength at 5/5 x4 extr, Normal tone, Normal affect Laboratory Data at Discharge: WBC 13.8 K/uL (4.3-10.9) H 09/09/19 03:44 Hgb 13.6 g/dL (12.0-15.0) 09/09/19 03:44 Hct 40.8 % (36.0-45.0) 09/09/19 03:44 Plt Count 238 K/uL (152-406) 09/09/19 03:44 PT 12.2 SECONDS (9.5-12.5) 09/06/19 19:00 INR 1.04 09/06/19 19:00 APTT 25.8 SECONDS (24.3-36.9) 09/06/19 19:00 Sodium 139 mmol/L (136-145) 09/09/19 03:44 Potassium 4.1 mmol/L (3.5-5.1) 09/09/19 03:44 BUN 19 mg/dL (7-18) H 09/09/19 03:44 Creatinine 0.86 mg/dL (0.55-1.3) 09/09/19 03:44 Glucose 120 mg/dL (74-106) H 09/09/19 03:44 Uric Acid 2.0 mg/dL (2.6-6.0) L 09/07/19 09:20 Phosphorus 2.3 mg/dL (2.5-4.9) L 09/09/19 03:44 Magnesium 2.4 mg/dL (1.8-2.4) 09/07/19 06:13 Total Bilirubin 0.6 mg/dL (0.2-1.0) 09/08/19 06:26 AST 52 U/L (15-37) H 09/08/19 06:26 ALT 32 U/L (12-78) 09/08/19 06:26 Alkaline Phosphatase 57 U/L (45-117) 09/08/19 06:26 Troponin I 6.13 ng/mL (0.0-0.045) H* 09/07/19 06:13 Lipase 73 U/L (73-393) 09/06/19 19:00 Home Medications: Aspirin 1 tab PO DAILY 09/07/19 Benzonatate [Tessalon Perle*] 2 cap PO TID PRN 09/07/19 Albuterol Inhaler [Ventolin Inhaler*] 2 puff IN TID PRN #1 hfa.aer.ad 09/09/19 Atorvastatin Calcium [Lipitor] 40 mg PO BEDTIME #30 tab 09/09/19 Budesonide/Formoterol Fumarate [Symbicort 160-4.5 Mcg Inhaler] 2 puff IH BID #1 hfa.aer.ad 09/09/19 Clopidogrel Bisulfate [Plavix*] 75 mg PO DAILY #30 tablet 09/09/19 Furosemide [Lasix] 20 mg PO DAILY #30 tab 09/09/19 Smz./Tmp. [Bactrim Ds 800 MG/160 MG*] 1 tab PO BID #14 tab 09/09/19 Sodium Chloride 1 gm PO BID #60 tablet 09/09/19 predniSONE [Deltasone] 20 mg PO DAILY #5 tab 09/09/19 New Medications: Albuterol Inhaler [Ventolin Inhaler*] 2 puff IN TID PRN #1 hfa.aer.ad PRN Reason: Shortness Of Breath Atorvastatin Calcium [Lipitor] 40 mg PO BEDTIME #30 tab Budesonide/Formoterol Fumarate [Symbicort 160-4.5 Mcg Inhaler] 2 puff IH BID #1 hfa.aer.ad Clopidogrel Bisulfate [Plavix*] 75 mg PO DAILY #30 tablet Furosemide [Lasix] 20 mg PO DAILY #30 tab predniSONE [Deltasone] 20 mg PO DAILY #5 tab Smz./Tmp. [Bactrim Ds 800 MG/160 MG*] 1 tab PO BID #14 tab Sodium Chloride 1 gm PO BID #60 tablet Patient Discharge Instructions: 1. Recommend follow up with her PCP in 1 week to follow up this hospitalization. 2. Patient presented with shortness of breath with acute on chronic respiratory failure secondary to COPD exacerbation complicated with likely underlying acute on chronic diastolic CHF. The patient was treated during the course of her stay. Patient was seen by pulmonology and Cardiology. Ejection fraction 60%. Chest x-ray showed improvement. Patient was diuresed. Sputum culture was positive for MRSA. At discharge she is without significant shortness of breath. For this CHF, She will continue with a 1500 cc per day fluid restriction and low-salt diet. She is to monitor her weight daily. If her weight increases by more than 5 lb she is to contact her PCP for further evaluation. Patient will continue with Lasix 20 mg daily and salt tablet 1 g twice daily. She will follow up with nephrology in 1-2 weeks. Recommend to recheck BMP at that time. For her COPD and positive sputum culture , patient will continue with prednisone 20 mg daily for 5 days. Patient will also start with Symbicort 2 puffs twice daily and Pro air 2 puffs 3 times a day as needed for shortness of breath. Patient will continue with Bactrim DS 1 pill twice daily for 7 days. Recommend follow up with pulmonology to further monitor and address. 3. Patient was also presented with hyponatremia. This is likely the CHF. Medications have been adjusted. Losartan has been discontinued. Nephrology was consulted. Renal ultrasound unremarkable. Sodium improved with fluid restriction and salt tablets. At discharge she will continue with Lasix 20 mg daily and salt tablet 1 g twice daily. Recommend to recheck BMP in 1 week. Patient may follow up with nephrology in 1-2 weeks. 4. Patient had elevated cardiac enzymes likely secondary to NSTEMI. This was likely related to the acute respiratory failure. Patient was seen and evaluated by Cardiology. Patient was stabilize. Patient sees cardiology as an outpatient with Dr. Casanova. Dr. Jimenez recommended that I get in contact with her hedis abstractor to determine if the patient will require inpatient heart catheterization or as outpatient. Pulmonology was able to get in contact with her hedis abstractor. Cardiology recommends outpatient heart catheterization. Patient will follow up with cardiology this week. Outpatient heart catheterization will be set up. At discharge patient will continue with aspirin 81 mg daily, Plavix 75 mg daily, and Lipitor 40 mg daily. Blood pressure controlled without medication at this time. No need for medication. Recommend follow up with Cardiology this week to further address. 5. Patient with hypertension. Medications have been adjusted due to hyponatremia. Patient no longer on losartan. Blood pressure remained stable off medication. Recommend to monitor blood pressure daily. No need for medication at this time. Diet: AHA Activity: Ad leslie Followup: Adams Bernstein MD [ACTIVE - CAN ADMIT] - 1-2 Weeks ([employer]- follow up in 2 weeks, have chemistry lab and urinalysis 2 days prior to office visit.) Time spent managing pt's care (in minutes): 55
[2019-09-09] MEDS: ARFORMOTEROL TARTRATE 15 MCG/2 ML VIAL.NEB NEB SCH (11:40)
[2019-09-09 12:33] VITALS: O2SAT 93
[2019-09-09 13:28] VITALS: BP 125/60; TEMP 97.1
--- NOTE | 2019-09-09 16:19 | PN ---
Date of Progress Note: 09/09/2019 Subjective: Patient was admitted with hyponatremia, non-ST elevation CO. Patient treated. 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 Physical Examination: Vital Signs: Blood pressure 118/60, pulse of 62, afebrile. Patient had urine output of 1600. Patie nt on fluid restriction of 1500. Chest: Clear to auscultation. Heart: S1, S2. Regular. Abdomen: Soft, nontender. Extremities: No edema. Laboratory Data: H and H 13.6/40.8. Sodium 139, potassium 4.1, bicarb 34, BUN 19, creatinine 0.8, c alcium 7.9, phosphorus 2.3, albumin 2.3. Current Medications: The patient on include: 1.Bactrim. 2.Plavix. 3.Lovenox. 4.Atorvastatin. 5.Prednisone 20 b.i.d. 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 We will continue salt tablet and Lasix. Patient is going to need to follo w up as outpatient, specially that been started on Bactrim. 2.Bronchitis secondary to methicillin-resistant Staphylococcus aureus. Patient started on Bactrim. Continue current antibiotic. We will follow up with the primary. 3.[id number] myocardial infarction. Plan for outpatient cardiac cath. We will follow up with Cardiology. Patient cleared from the renal standpoint for disc harge planning. DEYSI Voice ID: [id number] Report ID: [id number]
== END 2019-09-09 14:00 | disposition home or self-care (01) | DRG 190 ==
LOC: ER 18:26 → ERHOLD 21:30 → 4TH 21:41
PROVIDERS: ADMIT Hospitalist; ATTEND Hospitalist
PROC: 5A09357 Assistance with Respiratory Ventilation, Less than 24 Consecutive Hours, Continuous Positive Airway Pressure (ICD-10-PCS; principal; 2019-09-06)
DX: J44.1 Chronic obstructive pulmonary disease with (acute) exacerbation (principal); I21.4 Non-ST elevation (NSTEMI) myocardial infarction; I50.23 Acute on chronic systolic (congestive) heart failure; J96.21 Acute and chronic respiratory failure with hypoxia; E22.2 Syndrome of inappropriate secretion of antidiuretic hormone; I11.0 Hypertensive heart disease with heart failure; B95.62 Methicillin resistant Staphylococcus aureus infection as the cause of diseases classified elsewhere
CPT/HCPCS: 36415; 71045; 71046; 76770; 80048; 80053; 80069; 80076; 81003; 82533; 82550; 82553; 82805; 83605; 83690; 83735; 83880; 83935; 84100; 84132; 84145; 84300; 84443; 84484; 84550; 85025; 85610; 85730; 87040; 87070; 87077; 87186; 87205; 93005; 93306; 94640; 94660; 94760; 96365; 96375; 99284; 99291; J1650; J1940; J2405; J2543; J2930; J3475; J7030; J7512; J7605